=== PATIENT | male | born 1960 | race African-American/Black ===

== ENCOUNTER 2017-11-12 02:35 | Emergency (ER) | payer OTHER ==
[~2017-11-12] VITALS: Ht 149.9 cm; Wt 108.9 kg
[2017-11-12 02:35] VITALS: BP 146/91
[~2017-11-12 02:35] MED LIST: ATORVASTATIN CA80 MG PO; LISI40TA PO; METF500T4 PO; METO50TA6 PO; MULT-208 PO; NAPR-514 PO; OMEG1CAP16 PO; PANT40TA3 PO; SITA50TA PO
[2017-11-12] MEDS ORDERED: AZITHROMYCIN 250 MG TABLET. ONE (03:13)
[2017-11-12] MEDS ORDERED: PRED50TA PO (03:13)
[2017-11-12] MEDS ORDERED: AZIT250T PO (03:13)
[2017-11-12] MEDS ORDERED: predniSONE 20 MG TABLET ONE (03:13)
--- NOTE | 2017-11-12 03:14 | PHYS DOC ---
Past History Past Medical History: Diabetes, High Cholesterol, Hypertension, Other Additional Past Medical Histor: Hx. Rt. rotator cuff injury Past Surgical History: No Surgical History Smoking: Non-smoker Alcohol Use: None Drug Use: None Adult General Chief Complaint Chief Complaint: SORE THROAT HPI HPI Patient is a 13-year-old gentleman with history of hypertension and diabetes who presents here today complaining of cough cold congestion 30 days. Patient reports her last couple days he's noticed increased yellow drainage and yellow productive cough. Patient reports no shortness of breath. Patient has a nausea vomiting diarrhea. Patient has any fevers shakes chills. Patient reports that his symptoms of been worsening so he came to the ER tonight. Review of systems: Constitutional: Denies fever or chills Eyes: Denies change in visual acuity, redness, or eye pain HENT: Positive for nasal congestion or sore throat Respiratory: Positive for sore throat and cough All other systems were reviewed and found to be within normal limits, except as documented in this note. Physical exam: Constitutional: Well developed, well nourished, no acute distress, non-toxic appearance. HENT: Normocephalic, atraumatic, bilateral external ears normal, nose normal. Eyes: PERRLA, EOMI, conjunctiva normal, no discharge. Neck: Normal range of motion, no tenderness, supple, no stridor. Cardiovascular: Heart rate regular rhythm, Lungs & Thorax: Bilateral breath sounds clear to auscultation Abdomen: No abdominal distention. Skin: Warm, dry, no erythema, no rash. Back: Normal spinal curvature Extremities: No tenderness, no cyanosis, no clubbing, ROM intact, no edema. Neurologic: Alert and oriented X 3, normal motor function, normal sensory function, no focal deficits noted. Psychologic: Affect normal, judgement normal, mood normal. Patient's ER physical exam was most remarkable: Lungs clear no wheezing rales or rhonchi. No E to a changes. Assessment and plan: 1. 48-year-old who presents here today complaining of sinus symptoms consistent with chronic sinusitis. Patient will be given Zithromax and prednisone will be instructed to follow-up with his primary care physician in one to 2 days. Patient is otherwise clinically hemodynamically stable. Patient does not present with signs or symptoms consistent with pneumonia. Patient's pulse ox is 98%. Patient will follow-up with primary care physician for reevaluation if not better. Current Medications Current Medications Current Medications Medications (Trade) Dose Ordered Sig/Ryan Start Time Stop Time Status Last Admin Dose Admin Azithromycin (Zithromax) 500 mg 1X ONCE 11/12/17 03:15 11/12/17 03:16 UNV Prednisone (Prednisone) 40 mg 1X ONCE 11/12/17 03:15 11/12/17 03:16 UNV Allergies Allergies Allergies Coded Allergies Type Severity Reaction Last Updated Verified No Known Drug Allergies 09/02/13 No EKG EKG [] Radiology/Procedures Radiology/Procedures [] Course & Med Decision Making Course & Med Decision Making Pertinent Labs and Imaging studies reviewed. (See chart for details) [] Dragon Disclaimer Dragon Disclaimer This electronic medical record was generated, in whole or in part, using a voice recognition dictation system. Departure Departure: Impression: Primary Impression: Chronic sinusitis Disposition: HOME, SELF-CARE Condition: IMPROVED Referrals: CANDACE NUNEZ MD (PCP) Patient Instructions: Sinusitis Scripts Azithromycin (ZITHROMAX) 250 Mg Tablet 250 MG PO DAILY for ANTI-BIOTIC for 4 Days, #4 TAB 0 Refills Prov: CARMINA ANDREWS MD 11/12/17 Prednisone (PREDNISONE) 50 Mg Tablet 1 TAB PO DAILY, #5 TAB Prov: CARMINA ANDREWS MD 11/12/17 CARMINA ANDREWS MD Nov 12, 2017 03:14
[2017-11-12] MEDS ORDERED: AZITHROMYCIN 250 MG TABLET. PO ONE (03:30)
[2017-11-12] MEDS ORDERED: predniSONE 20 MG TABLET PO ONE (03:30)
== END 2017-11-12 03:20 | disposition home or self-care (01) ==
LOC: ER 02:35
DX: J32.9 Chronic sinusitis, unspecified (principal); J02.9 Acute pharyngitis, unspecified; E11.9 Type 2 diabetes mellitus without complications; E78.00 Pure hypercholesterolemia, unspecified; I10 Essential (primary) hypertension
CPT/HCPCS: 99283; J0456; J7512

== ENCOUNTER 2018-04-04 19:49 | Emergency (ER) | payer OTHER ==
[~2018-04-04] VITALS: Ht 175.3 cm; Wt 93.9 kg
[~2018-04-04 19:49] MED LIST changes: +AZIT250T PO; -METF500T4 PO; +METF500T5 PO; +PRED50TA PO
--- NOTE | 2018-04-04 21:23 | PHYS DOC ---
Past History Past Medical History: Diabetes, High Cholesterol, Hypertension Additional Past Medical Histor: Hx. Rt. rotator cuff injury Past Surgical History: Appendectomy Smoking: Non-smoker Alcohol Use: None Drug Use: None Adult General Chief Complaint Chief Complaint: PENIS PROBLEM HPI HPI 37-year-old male presents with penis foreskin swelling. The patient had an episode 1 month ago where he had sexual relations with his and afterwards he had swollen and irritated skin behind the oconnor of the penis. The swelling and discomfort lasted for more than a week but went away on its own. The patient had intercourse with his again 3 days ago and had some swelling that wasn't quite as severe. He also has had pruritus in that same area. He is noticed a sloughing of the skin in the area where was swelling. There is no swelling at this time. He does not have concern for STD. He is a monogamous relationship. His has no symptoms. He denies fever or chills. Review of Systems Review of Systems Constitutional: Denies fever or chills [] Eyes: Denies change in visual acuity, redness, or eye pain [] HENT: Denies nasal congestion or sore throat [] Respiratory: Denies cough or shortness of breath [] Cardiovascular: No additional information not addressed in HPI [] GI: Denies abdominal pain, nausea, vomiting, bloody stools or diarrhea [] : Penis swelling and pruritus[] Musculoskeletal: Denies back pain or joint pain [] Integument: Denies rash or skin lesions [] Neurologic: Denies headache, focal weakness or sensory changes [] Endocrine: Denies polyuria or polydipsia [] All other systems were reviewed and found to be within normal limits, except as documented in this note. Allergies Allergies Allergies Coded Allergies Type Severity Reaction Last Updated Verified No Known Drug Allergies 09/02/13 No Physical Exam Physical Exam Constitutional: Well developed, well nourished, no acute distress, non-toxic appearance. [] HENT: Normocephalic, atraumatic, bilateral external ears normal, oropharynx moist, no oral exudates, nose normal. [] Eyes: PERRLA, EOMI, conjunctiva normal, no discharge. [] Neck: Normal range of motion, no tenderness, supple, no stridor. [] Cardiovascular:Heart rate regular rhythm, no murmur [] Lungs & Thorax: Bilateral breath sounds clear to auscultation [] Abdomen: Bowel sounds normal, soft, no tenderness, no masses, no pulsatile masses. [] Skin: Warm, dry, no erythema, no rash. [] Back: No tenderness, no CVA tenderness. [] Extremities: No tenderness, no cyanosis, no clubbing, ROM intact, no edema. [] Neurologic: Alert and oriented X 3, normal motor function, normal sensory function, no focal deficits noted. [] Psychologic: Affect normal, judgement normal, mood normal. : Normal descended testes bilaterally, circumcised, some mild erythema of the shaft of the penis just proximal to the oconnor. The skin in this area has some white skin that is sloughing off with minimal friction. This appears to be consistent with fungal infection.[] Current Patient Data Vital Signs Vital Signs Date Time Temp Pulse Resp B/P (MAP) Pulse Ox O2 Delivery O2 Flow Rate FiO2 04/04/18 20:05 98.2 80 16 100 Room Air EKG EKG [] Radiology/Procedures Radiology/Procedures [] Course & Med Decision Making Course & Med Decision Making Pertinent Labs and Imaging studies reviewed. (See chart for details) I will trial the patient on a course of antifungal topical medication. I do not see any discharge. I do not see signs of bacterial infection. If this does not improve the patient's condition, I have recommended that he follow up with urology. [] Dragon Disclaimer Dragon Disclaimer This electronic medical record was generated, in whole or in part, using a voice recognition dictation system. Departure Departure: Referrals: CANDACE NUNEZ MD (PCP) TJ LADD DO Apr 04, 2018 21:23
[2018-04-04] MEDS ORDERED: CLOT15CR4 TP (21:28)
[2018-04-04 21:30] VITALS: BP 144/74
== END 2018-04-04 21:33 | disposition home or self-care (01) ==
LOC: ER 19:49
DX: N48.89 Other specified disorders of penis (principal); E11.9 Type 2 diabetes mellitus without complications; E78.00 Pure hypercholesterolemia, unspecified; I10 Essential (primary) hypertension
CPT/HCPCS: 99282

== ENCOUNTER 2018-08-22 17:02 | Emergency (ER) | payer OTHER ==
[~2018-08-22] VITALS: Ht 149.9 cm; Wt 95.1 kg
[~2018-08-22 17:02] MED LIST changes: +CLOT15CR4 TP; +METF500T16 PO; -METF500T5 PO
[2018-08-22 17:12] VITALS: BP 159/94
[2018-08-22] MEDS ORDERED: METH4TAB2 PO (17:58)
[2018-08-22] MEDS ORDERED: AMOX1TAB61 PO (17:58)
[2018-08-22] MEDS ORDERED: FEXO180T81 PO (17:58)
--- NOTE | 2018-08-22 17:58 | PHYS DOC ---
Past History Past Medical History: Diabetes, High Cholesterol, Hypertension Additional Past Medical Histor: Hx. Rt. rotator cuff injury Past Surgical History: Appendectomy Smoking: Non-smoker Alcohol Use: None Drug Use: None Adult General Chief Complaint Chief Complaint: FEVER HPI HPI Patient is a 57-year-old male who presents with complaint of sinus drainage, sore throat and congestion that has been going on for the last couple of months. Patient denies any fever. He states that he was seen here several months back and had been prescribed medication for very similar symptoms and he states that he got better for a while but it has returned. He denies any chest pain or shortness of breath. He does indicate that he has some cough in the morning that is productive of yellow sputum. Review of Systems Review of Systems Constitutional: Denies fever or chills [] HENT: [place] of sinus congestion and sore throat [] Respiratory: Complains of cough without shortness of breath [] Cardiovascular: No additional information not addressed in HPI [] Integument: Denies rash or skin lesions [] Neurologic: Denies headache, focal weakness or sensory changes [] Allergies Allergies Allergies Coded Allergies Type Severity Reaction Last Updated Verified No Known Drug Allergies 09/02/13 No Physical Exam Physical Exam Constitutional: Well developed, well nourished, no acute distress, non-toxic appearance. [] HENT: Normocephalic, atraumatic, bilateral external ears normal, pharyngeal erythema without accidents. Posterior pharyngeal cobblestoning, nose normal. Tenderness on percussion of maxillary sinuses. [] Eyes: PERRLA, EOMI, conjunctiva normal, no discharge. [] Neck: Normal range of motion, no tenderness, supple, with cervical lymphadenopathy. [] Cardiovascular: Regular rate and rhythm [] Lungs & Thorax: Bilateral breath sounds clear to auscultation [] Skin: Warm, dry, no erythema, no rash. [] Extremities: No tenderness, no cyanosis, no clubbing, ROM intact, no edema. [] Current Patient Data Vital Signs Vital Signs Date Time Temp Pulse Resp B/P (MAP) Pulse Ox O2 Delivery O2 Flow Rate FiO2 08/22/18 17:12 97.4 77 20 98 Room Air EKG EKG [] Radiology/Procedures Radiology/Procedures [] Course & Med Decision Making Course & Med Decision Making Pertinent Labs and Imaging studies reviewed. (See chart for details) [] Dragon Disclaimer Dragon Disclaimer This electronic medical record was generated, in whole or in part, using a voice recognition dictation system. Departure Departure: Impression: Primary Impression: Sinusitis Disposition: 01 HOME, SELF-CARE Condition: STABLE Referrals: CANDACE NUNEZ MD (PCP) Patient Instructions: Sinusitis Scripts Fexofenadine Hcl (JACE ALLERGY) 180 Mg Tablet 1 TAB PO DAILY for allergies, #30 TAB Prov: SUE CROWELL Jr. DO 08/22/18 Methylprednisolone (MEDROL) 4 Mg Tab.ds.pk 1 PKG PO UD for inflammation, #1 PKG Prov: SUE CROWELL Jr. DO 08/22/18 Amoxicillin/Potassium Clav (AUGMENTIN 875-125 TABLET) 1 Each Tablet 1 TAB PO BID for infection, #28 TAB Prov: SUE CROWELL Jr. DO 08/22/18 Problem Qualifiers Primary Impression: Sinusitis Sinusitis location: maxillary Chronicity: chronic Qualified Codes: J32.0 - Chronic maxillary sinusitis SUE CROWELL Jr. DO Aug 22, 2018 17:58
== END 2018-08-22 17:55 | disposition home or self-care (01) ==
LOC: ER 17:02
DX: J32.0 Chronic maxillary sinusitis (principal); E11.9 Type 2 diabetes mellitus without complications; E78.00 Pure hypercholesterolemia, unspecified; I10 Essential (primary) hypertension
CPT/HCPCS: 99283

== ENCOUNTER 2019-03-12 19:21 | Emergency (ER) | payer OTHER ==
[~2019-03-12] VITALS: Ht 185.4 cm; Wt 95.3 kg
[~2019-03-12 19:21] MED LIST changes: +AMOX1TAB61 PO; +FEXO180T81 PO; +METH4TAB2 PO
[2019-03-12 19:33] VITALS: BP 150/95
[2019-03-12] MEDS ORDERED: FEXO180T81 PO (19:44)
[2019-03-12] MEDS ORDERED: AMOX1TAB61 PO (19:44)
[2019-03-12] MEDS ORDERED: METH4TAB2 PO (19:44)
--- NOTE | 2019-03-12 19:44 | PHYS DOC ---
Past History Past Medical History: Diabetes, High Cholesterol, Hypertension Additional Past Medical Histor: Hx. Rt. rotator cuff injury Past Surgical History: Appendectomy Smoking: Non-smoker Alcohol Use: None Drug Use: None Adult General Chief Complaint Chief Complaint: OTHER COMPLAINTS HPI HPI Patient is a 58-year-old male presents with 2-3 days of sinus pressure, runny nose, postnasal drainage and cough. He has long-standing history of this. Was most recently on antibiotics for this in July 2018. Reports that previous medication treatment improved his symptoms within 2-3 days. Reports his symptoms are moderate in intensity. Denies any fever. Denies any significant pain. Denies any purulent drainage.[] Review of Systems Review of Systems Constitutional: Denies fever or chills [] Eyes: Denies change in visual acuity, redness, or eye pain [] HENT: See history of present illness[] Respiratory: Denies shortness of breath, see history of present illness [] Cardiovascular: No chest pain or palpitations[] GI: Denies abdominal pain, nausea, vomiting, bloody stools or diarrhea [] : Denies dysuria or hematuria [] Musculoskeletal: Denies back pain or joint pain [] Integument: Denies rash or skin lesions [] Neurologic: Denies headache, focal weakness or sensory changes [] Endocrine: Denies polyuria or polydipsia [] All other systems were reviewed and found to be within normal limits, except as documented in this note. Allergies Allergies Allergies Coded Allergies Type Severity Reaction Last Updated Verified No Known Drug Allergies 09/02/13 No Physical Exam Physical Exam Constitutional: Well developed, well nourished, no acute distress, non-toxic appearance. [] HENT: Normocephalic, atraumatic, bilateral external ears normal, oropharynx moist, no oral exudates, nose with mild clear rhinorrhea, posterior pharyngeal streaking is present[] Eyes: PERRLA, EOMI, conjunctiva normal, no discharge. [] Neck: Normal range of motion, no tenderness, supple, no stridor. [] Cardiovascular:Heart rate regular rhythm, no murmur [] Lungs & Thorax: Bilateral breath sounds clear to auscultation [] Abdomen: Not examined. [] Skin: Warm, dry, no erythema, no rash. [] Back: No tenderness, no CVA tenderness. [] Extremities: No tenderness, no cyanosis, no clubbing, ROM intact, no edema. [] Neurologic: Alert and oriented X 3, normal motor function, normal sensory function, no focal deficits noted. [] Psychologic: Affect normal, judgement normal, mood normal. [] Current Patient Data Vital Signs Vital Signs Date Time Temp Pulse Resp B/P (MAP) Pulse Ox O2 Delivery O2 Flow Rate FiO2 03/12/19 19:33 97.5 77 18 99 Room Air EKG EKG [] Radiology/Procedures Radiology/Procedures [] Course & Med Decision Making Course & Med Decision Making Pertinent Labs and Imaging studies reviewed. (See chart for details) Medical decision making: Given the patient has had previous episodes of sinusitis that improved with medicine. Will prescribe similar medicine regimen for him. There does not appear to be any evidence of pneumonia. No meningitis or encephalitis.[] Dragon Disclaimer Dragon Disclaimer This electronic medical record was generated, in whole or in part, using a voice recognition dictation system. Departure Departure: Impression: Primary Impression: Sinusitis Disposition: HOME, SELF-CARE Condition: IMPROVED Referrals: MONICA LOMELI APRN (PCP) Follow-up in 2 days Patient Instructions: Sinusitis Additional Instructions: Follow-up with your regular doctor in 2 days. Drink plenty of fluids. Return to the ER if fever of more than 101, difficulty breathing, or any other concerns. Scripts Amoxicillin/Potassium Clav (AUGMENTIN 875-125 TABLET) 1 Each Tablet 1 TAB PO BID for sinuses, #20 TAB Prov: KRISITAN MCKEON DO 03/12/19 Methylprednisolone (MEDROL) 4 Mg Tab.ds.pk 1 PKG PO UD for sinuses, #1 PKG Prov: KRISTIAN MCKEON DO 03/12/19 Fexofenadine Hcl (JACE ALLERGY) 180 Mg Tablet 1 TAB PO DAILY for sinuses, #30 TAB 0 Refills Prov: KRISTIAN MCKEON DO 03/12/19 Problem Qualifiers Primary Impression: Sinusitis Sinusitis location: unspecified location Chronicity: subacute Qualified Codes: J01.90 - Acute sinusitis, unspecified KRISTIAN MCKEON DO Mar 12, 2019 19:44
== END 2019-03-12 19:45 | disposition home or self-care (01) ==
LOC: ER 19:21
DX: J01.90 Acute sinusitis, unspecified (principal); E11.9 Type 2 diabetes mellitus without complications; E78.00 Pure hypercholesterolemia, unspecified; I10 Essential (primary) hypertension
CPT/HCPCS: 99283

== ENCOUNTER 2019-08-21 21:11 | Emergency (ER) | payer OTHER ==
[~2019-08-21] VITALS: Ht 185.4 cm; Wt 97.5 kg
--- NOTE | 2019-08-21 22:11 | PHYS DOC ---
Past History Past Medical History: Diabetes, High Cholesterol, Hypertension Additional Past Medical Histor: Hx. Rt. rotator cuff injury Past Surgical History: Appendectomy Smoking: Non-smoker Alcohol Use: None Drug Use: None Adult General Chief Complaint Chief Complaint: VISION PROBLEM [facility] HPI 58-year-old male presents with left eye visual disturbance. The last couple weeks, the patient has had intermittent black spots "floaters" only in the left eye. He presents today because around 1:30 PM he began to have fall deviation throughout his visual schmidt again just in the left eye. He has no pain. He thought it might were also he waited several hours before he came to the emergency room. He denies any other changes or concerns. He can still see light and objects with that I it just looks a bit blurry. Patient has oral medication controlled diabetes and hyperlipidemia. He has well-controlled blood pressure. He has no other chronic diseases. He has had no previous significant eye problems. Review of Systems Review of Systems Constitutional: Denies fever or chills [] Eyes: Denies change in visual acuity, redness, or eye pain [] HENT: Denies nasal congestion or sore throat [] Respiratory: Denies cough or shortness of breath [] Cardiovascular: No additional information not addressed in HPI [] GI: Denies abdominal pain, nausea, vomiting, bloody stools or diarrhea [] : Denies dysuria or hematuria [] Musculoskeletal: Denies back pain or joint pain [] Integument: Denies rash or skin lesions [] Neurologic: Denies headache, focal weakness or sensory changes [] Endocrine: Denies polyuria or polydipsia [] All other systems were reviewed and found to be within normal limits, except as documented in this note. Allergies Allergies Allergies Coded Allergies Type Severity Reaction Last Updated Verified No Known Drug Allergies 09/02/13 No Physical Exam Physical Exam Constitutional: Well developed, well nourished, no acute distress, non-toxic appearance. [] HENT: Normocephalic, atraumatic, bilateral external ears normal, oropharynx moist, no oral exudates, nose normal. [] Eyes: PERRLA, EOMI, conjunctiva normal, no discharge. Eye exam severely limited to inability to dilate the patient's eye.[] Neck: Normal range of motion, no tenderness, supple, no stridor. [] Cardiovascular:Heart rate regular rhythm, no murmur [] Lungs & Thorax: Bilateral breath sounds clear to auscultation [] Abdomen: Bowel sounds normal, soft, no tenderness, no masses, no pulsatile masses. [] Skin: Warm, dry, no erythema, no rash. [] Back: No tenderness, no CVA tenderness. [] Extremities: No tenderness, no cyanosis, no clubbing, ROM intact, no edema. [] Neurologic: Alert and oriented X 3, normal motor function, normal sensory function, no focal deficits noted. [] Psychologic: Affect normal, judgement normal, mood normal. [] Current Patient Data Vital Signs Vital Signs Date Time Temp Pulse Resp B/P (MAP) Pulse Ox O2 Delivery O2 Flow Rate FiO2 08/21/19 21:31 98.3 96 16 98 Room Air EKG EKG [] Radiology/Procedures Radiology/Procedures [] Course & Med Decision Making Course & Med Decision Making Pertinent Labs and Imaging studies reviewed. (See chart for details) Patient does not appear to have specific visual field deficits. He states they mostly global blurriness, but is able to see all visual schmidt through this. He has not seeing large number of floaters. He occasionally sees one or 2. He has been followed by an eye doctor regularly. He will make an appointment tomorrow for evaluation tomorrow. I believe this is a reasonable treatment plan as it is 10:00 PM the patient is stable for discharge at this time. [] Dragon Disclaimer Dragon Disclaimer This electronic medical record was generated, in whole or in part, using a voice recognition dictation system. Departure Departure: Impression: Primary Impression: Floaters in visual field Disposition: 01 HOME, SELF-CARE Condition: STABLE Referrals: MONICA LOMELI APRN (PCP) Patient Instructions: Eye - Floaters, Retinal Detachment Problem Qualifiers Primary Impression: Floaters in visual field Laterality: left Qualified Codes: H43.392 - Other vitreous opacities, left eye TJ LADD DO Aug 21, 2019 22:11
[2019-08-21 22:15] VITALS: BP 152/69
== END 2019-08-21 22:15 | disposition home or self-care (01) ==
LOC: ER 21:11
DX: H43.392 Other vitreous opacities, left eye (principal); E11.9 Type 2 diabetes mellitus without complications; E78.00 Pure hypercholesterolemia, unspecified; I10 Essential (primary) hypertension
CPT/HCPCS: 99284

== ENCOUNTER 2020-04-02 19:43 | Emergency (ER) | payer OTHER ==
[~2020-04-02] VITALS: Ht 185.4 cm; Wt 95.1 kg
[~2020-04-02 19:43] MED LIST changes: +CLOT15CR23 TP; -CLOT15CR4 TP
--- NOTE | 2020-04-02 19:47 | PHYS DOC ---
Past History Past Medical History: Diabetes, High Cholesterol, Hypertension Additional Past Medical Histor: Hx. Rt. rotator cuff injury Past Surgical History: Appendectomy Smoking: Non-smoker Alcohol Use: None Drug Use: None General Adult HPI: HPI: "I know .. I got COVID.. I was tested + on Thursday last week... [facility] My has it.... My brother in law has it... I ve been without symptoms ...until today..I had a little cough.. and a little more sputum..." but.. other than that I feel fine..." Patient is a 59 year old MALE [employer] [place] employee who presents with above hx and complaints of COVID + with Dyspnea, cough and some sputum production. Pt. previously seen in Emergency Room 12/08 and 05/17 for chest pain chest pain symptoms were attributed to GERD.. Pt. states he was COVID + on testing [facility] Thursday. No Prior hx. CADz. and but has risk factors, elevated Lipids, HTN, DM. Pt. prior admit evaluations for chest pain on 12/08 and 05/17, chest pain felt to be due to GERD. No current chest pain or dysrhythmias. Pt. concerned because of mild cough and some sputum. Sputum clear in color. Patient denies any changes of his discharge meds from 05/17/2015. Patient does have positive COVID contacts with and [id number].. No recent travel overseas. 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 Is retired [employer]. Patient normally follows at [facility] for care. Review of Systems: Review of Systems: Constitutional: Denies fever or chills Eyes: Denies change in visual acuity HENT: Denies nasal congestion or sore throat Respiratory: Complaints of cough and wheezing. Cardiovascular: Denies chest pain or edema GI: Denies abdominal pain, nausea, vomiting, bloody stools or diarrhea : Denies dysuria Musculoskeletal: Denies back pain or joint pain Integument: Denies rash Neurologic: Denies headache, focal weakness or sensory changes Endocrine: Hx. of DM and Elevated Lipids Lymphatic: Denies swollen glands Psychiatric: Denies depression or anxiety Heart Score: HEART Score for Chest Pain: HEART Score for Chest Pain Response (Comments) Value History Slighlty/Non-Suspicious 0 ECG Nonspecific Repolarizatio 1 Age >45 - < 65 1 Risk Factors 1 or 2 Risk Factors 1 Troponin < Normal Limit 0 Total 3 Risk Factors: Risk Factors: DM, Current or recent (<one month) smoker, HTN, HLP, family history of CAD, obesity. Risk Scores: Score 0 - 3: 2.5% MACE over next 6 weeks - Discharge Home Score 4 - 6: 20.3% MACE over next 6 weeks - Admit for Clinical Observation Score 7 - 10: 72.7% MACE over next 6 weeks - Early Invasive Strategies Family History: Family History: Diabetes and hypertension Current Medications: Current Meds: See nursing for home meds Allergies: Allergies: Allergies Coded Allergies Type Severity Reaction Last Updated Verified No Known Drug Allergies 09/02/13 No Physical Exam: PE: Constitutional: no acute distress, non-toxic appearance. [] HENT: Normocephalic, atraumatic, bilateral external ears normal, oropharynx moist, mild postnasal drainage, no oral exudates, nose swollen turbinates and clear rhinorrhea Eyes: PERRLA, EOMI, conjunctiva normal, no discharge. [] Neck: Normal range of motion, no tenderness, supple, no stridor. [] Cardiovascular:Heart rate regular rhythm, no murmur [] Lungs & Thorax: Bilateral breath sounds equal apex with few scattered wheezes on auscultation [] Abdomen: Bowel sounds normal, soft, no tenderness, no masses, no pulsatile masses. Old surgery scars. Skin: Warm, dry, no erythema, no rash. [] Back: No tenderness, no CVA tenderness. [] Extremities: No tenderness, no cyanosis, no clubbing, ROM intact, no edema. Surgery scar right shoulder. No cording appreciated Neurologic: Alert and oriented X 3, normal motor function, normal sensory function, no focal deficits noted. [] Patient is ambulatory without problems. Psychologic: Affect anxious, judgement normal, mood normal. [] EKG: EKG: My interpretation EKG shows a sinus tachycardia 106 bpm. Does have an occasional PVC. Does have left axis deviation. And a fascicular block. Overall morphology is similar to prior EKG on file. [] Radiology/Procedures: Radiology/Procedures: [][address] [address] IMAGING REPORT Signed PATIENT: GARRY BROTHERS ACCOUNT: [id number] : 1960 LOCATION: ER AGE: 59 SEX: M EXAM STATUS: REG ER ORD. PHYSICIAN: JOSUÉ BURRIS MD REASON: Dyspnea, cough, diabetic hx. COVID+ThursdayMarch 26. Omni 350 100cc PROCEDURE: CT ANGIOGRAPHY CHEST Exam: CT of chest with contrast INDICATION: Dyspnea, cough, diabetic TECHNIQUE: Sequential axial images through the chest obtained following the administration of 90 mL of Isovue-370 IV contrast. Sagittal and coronal reformatted images were reconstructed from the axial data and reviewed. 3-D reformatted images were reconstructed from the axial data and reviewed. Comparisons: Chest x-ray same day FINDINGS: Visualized portions of the thyroid are unremarkable. No enlarged mediastinal lymph nodes are identified. Heart size is normal. No pericardial effusion. Mild coronary artery calcium lesions. Thoracic aorta is a normal course and caliber. Pulmonary artery is not enlarged. No pulmonary embolus identified within the main, lobar or segmental pulmonary arteries. Airways are patent. There is patchy areas of consolidation in the lungs bilaterally. No pneumothorax. No pleural effusion or thickening. Visualized upper abdomen is unremarkable. No suspicious osseous lesions or acute fractures. IMPRESSION: 1. No pulmonary embolus identified within the main, lobar or segmental pulmonary arteries. 2. Patchy areas of consolidation at the lungs bilaterally favored to be infectious or inflammatory in etiology. Correlate for atypical/viral causes. Exposure: One or more of the following in the visualized dose reduction techniques were utilized for this examination: 1. Automated exposure control 2. Adjustment of the MA and/or KV according to patient size 3. Use of iterative of reconstructive technique Electronically signed by: Meg Hameed MD (04/02/2020 10:04 PM) [id number] DICTATED AND SIGNED BY: MEG HAMEED MD DATE: 04/02/202203 CC: JOSUÉ BURRIS MD; MONICA LOMELI APRN ~ Course & Med Decision Making: Course & Med Decision Making Pertinent Labs and Imaging studies reviewed. (See chart for details) Patient to use MDI 2 puffs 4 times a day. Patient take a Zithromax 250 a day. Patient take Tylenol and ibuprofen as needed for discomfort or fever. Patient to push fluids. Patient to manage his diabetes closely. Patient to return if he has desaturations or increased difficulty in breathing or chest pain. Patient follow-up at [facility]. Patient issued a copy of his x-rays and CT of chest. Patient to wear a mask anytime he is outside his home covering his nose and mouth. Patient to continue self-isolation since he is still having symptoms even if minor. Must follow-up. Take previous meds as directed. Hold Metaformin x 24 hrs. Push fluids. Options of admit for observation declined by pt. at this time. Impression: 1. COVID-19 positive test (U07.1, COVID-19) with Acute Pneumonia (J12.89, Other viral pneumonia) (If respiratory failure or sepsis present, add as separate assessment) 2. Diabetes glucose 371 ( Ate just before arrival.) 3. Hypo-magnesium 1.6 4. Elevated d-dimer 0.71 5. Elevated CRP 7.0 6. Hx. HTN 7. Hx. Elevated Lipids []COVID Precautions taken in care of pt. Jero Disclaimer: Jero Disclaimer: This electronic medical record was generated, in whole or in part, using a voice recognition dictation system. Departure Departure: Disposition: 01 HOME/RESIDENCE PRIOR TO ADM Condition: STABLE Referrals: MONICA LOMELI APRN (PCP) Scripts Azithromycin (ZITHROMAX) 250 Mg Tablet 250 MG PO DAILY for ANTI-BIOTIC for 5 Days, #5 TAB 0 Refills Prov: JOSUÉ BURRIS MD 04/02/20 Justification of Admission: Justification of Admission: Justification of Admission Dx: N/A Dragon Disclaimer This chart was dictated in whole or in part using Voice Recognition software in a busy, high-work load, and often noisy Emergency Department environment. It may contain unintended and wholly unrecognized errors or omissions. Dragon Disclaimer This chart was dictated in whole or in part using Voice Recognition software in a busy, high-work load, and often noisy Emergency Department environment. It may contain unintended and wholly unrecognized errors or omissions. JOSUÉ BURRIS MD Apr 02, 2020 19:47
[2020-04-02] MEDS ORDERED: IV RINGERS SOLUTION,LACTATED 1,000 ML IV SCH (19:49)
[2020-04-02] MEDS ORDERED: ASPIRIN CHEWABLE 81 MG TABLET. PO ONE (20:00)
[2020-04-02] MEDS ORDERED: ALBUTEROL SULFATE 8GM INHALER. INH ONE (20:00)
--- NOTE | 2020-04-02 20:39 | EKG ---
[address] [address] Test Date: 2020-04-02 Test Time: 20:20:42 Pat Name: GARRY BROTHERS Department: Room: Gender: M [employer] Analyst: CHASITY : 1960 Requested By: JOSUÉ BURRIS Order Number: [id number] Reading MD: Measurements Intervals Marshall Rate: 106 P: -42 DE: 112 QRS: -34 QRSD: 88 T: 23 QT: 344 QTc: 459 Interpretive Statements SINUS TACHYCARDIA VENTRICULAR PREMATURE COMPLEX(ES) ABNORMAL LEFT AXIS DEVIATION LEFT ANTERIOR FASCICULAR BLOCK ABNORMAL ECG RI6.02 No previous ECG available for comparison
--- NOTE | 2020-04-02 20:43 | RAD ---
AP portable chest radiograph 04/02/2020 Clinical History: Shortness of breath. An AP erect portable digital radiograph of the chest was obtained. Comparison study is dated 11/05/2015. The cardiac silhouette is normal in size. The thoracic aorta is mildly tortuous. Linear bands of subsegmental atelectasis are seen involving the left lower lobe. No area of consolidation is seen. No pneumothorax or pleural effusion is noted. Degenerative changes are seen involving both shoulders along with the thoracic spine. IMPRESSION: Linear bands of subsegmental atelectasis are seen involving the left lower lobe. Electronically signed by: Orion Stack MD (04/02/2020 8:40 PM) [id number]
[2020-04-02 20:48] LABS: BASO % 1 % (0-3); EOS % 0 % (0-3); HEMATOCRIT 46.1 % (39.0-53.0); HEMOGLOBIN 15.6 g/dL (13.0-17.5); LYMPH % 28 % (24-48); MEAN CORPUSCULAR HEMOGLOBIN 28 pg (25-35); MEAN CORPUSCULAR HGB CONC 34 g/dL (31-37); MEAN CORPUSCULAR VOLUME 83 fL (79-100); MONO # 0.5 x10^3/uL (0.0-1.1); MONO % 14 % (0-9); NEUT # 2.1 x10^3uL (1.8-7.7); NEUT % 57 % (31-73); PLATELET COUNT 175 x10^3/uL (140-400); RED BLOOD COUNT 5.53 x10^6/uL (4.30-5.70); RED CELL DISTRIBUTION WIDTH 13.4 % (11.5-14.5); WHITE BLOOD COUNT 3.7 x10^3/uL (4.0-11.0)
[2020-04-02 20:52] LABS: BARBITURATES NEG (NEG); BENZODIAZEPINES NEG (NEG); CANNABINOIDS NEG (NEG); COCAINE NEG (NEG); METHADONE NEG (NEG); OPIATES NEG (NEG); PHENCYCLIDINE NEG (NEG)
[2020-04-02 20:54] LABS: BACTERIA,URINE 0 /HPF (0-FEW); BILIRUBIN,URINE NEG (NEG); CLARITY,URINE CLEAR; COLOR,URINE YELLOW; GLUCOSE,URINE >=1000 mg/dL (NEG); NITRITE,URINE NEG (NEG); RBC,URINE 0 /HPF (0-2); SQUAMOUS EPITHELIAL CELL,UR OCC /LPF; UROBILINOGEN,URINE 0.2 mg/dL (0.2 mg/dL); WBC,URINE OCC /HPF (0-4)
[2020-04-02 20:55] LABS: HYALINE CASTS, URINE OCC /HPF
[2020-04-02 20:56] LABS: AMPHETAMINE/METHAMPHETAMINE NEG (NEG)
[2020-04-02] MEDS ORDERED: IV RINGERS SOLUTION,LACTATED 1,000 ML IV ONE (21:00)
[2020-04-02 21:03] LABS: CALCIUM 8.1 mg/dL (8.5-10.1); CREATININE 1.2 mg/dL (0.7-1.3); GFR 74.5; POTASSIUM 3.5 mmol/L (3.5-5.1)
[2020-04-02 21:08] LABS: ALBUMIN 3.6 g/dL (3.4-5.0); DIRECT BILIRUBIN 0.2 mg/dL (0.0-0.2); MAGNESIUM 1.6 mg/dL (1.8-2.4); TOTAL PROTEIN 7.5 g/dL (6.4-8.2)
[2020-04-02] MEDS ORDERED: MAGNESIUM SULFATE 2GM 50 ML IV ONE (21:30)
[2020-04-02] MEDS ORDERED: AZITHROMYCIN 250 MG TABLET. PO ONE (21:30)
[2020-04-02] MEDS ORDERED: IOHEXOL 350 MG/ML 100 ML VIAL. IV ONE (21:30)
[2020-04-02] MEDS ORDERED: ENOXAPARIN ** NOTE DOSE ** SYRINGE SQ ONE (21:30)
--- NOTE | 2020-04-02 22:07 | RAD ---
Exam: CT of chest with contrast INDICATION: Dyspnea, cough, diabetic TECHNIQUE: Sequential axial images through the chest obtained following the administration of 90 mL of Isovue-370 IV contrast. Sagittal and coronal reformatted images were reconstructed from the axial data and reviewed. 3-D reformatted images were reconstructed from the axial data and reviewed. Comparisons: Chest x-ray same day FINDINGS: Visualized portions of the thyroid are unremarkable. No enlarged mediastinal lymph nodes are identified. Heart size is normal. No pericardial effusion. Mild coronary artery calcium lesions. Thoracic aorta is a normal course and caliber. Pulmonary artery is not enlarged. No pulmonary embolus identified within the main, lobar or segmental pulmonary arteries. Airways are patent. There is patchy areas of consolidation in the lungs bilaterally. No pneumothorax. No pleural effusion or thickening. Visualized upper abdomen is unremarkable. No suspicious osseous lesions or acute fractures. IMPRESSION: 1. No pulmonary embolus identified within the main, lobar or segmental pulmonary arteries. 2. Patchy areas of consolidation at the lungs bilaterally favored to be infectious or inflammatory in etiology. Correlate for atypical/viral causes. Exposure: One or more of the following in the visualized dose reduction techniques were utilized for this examination: 1. Automated exposure control 2. Adjustment of the MA and/or KV according to patient size 3. Use of iterative of reconstructive technique Electronically signed by: Meg Humphrey MD (04/02/2020 10:04 PM) [id number]
[2020-04-02] MEDS ORDERED: AZIT250T PO (22:23)
[2020-04-03 00:15] VITALS: BP 145/86
== END 2020-04-03 00:40 | disposition home or self-care (01) ==
LOC: ER 19:43
DX: U07.1 COVID-19 (principal); J12.89 Other viral pneumonia; E11.9 Type 2 diabetes mellitus without complications; E83.42 Hypomagnesemia; R79.1 Abnormal coagulation profile; R79.82 Elevated C-reactive protein (CRP); I10 Essential (primary) hypertension; E78.00 Pure hypercholesterolemia, unspecified
CPT/HCPCS: 36415; 71045; 71275; 80048; 80076; 80307; 81001; 82550; 83605; 83690; 83735; 83880; 84443; 84484; 85025; 85379; 85610; 85730; 86140; 87040; 93005; 94640; 96361; 96365; 96366; 96372; 99285; J0456; J1650; J3475; J7120; J7613; Q9967; 94664

== ENCOUNTER 2020-09-02 21:39 | Emergency (ER) | payer OTHER ==
[~2020-09-02] VITALS: Ht 185.4 cm; Wt 96.6 kg
[~2020-09-02 21:39] MED LIST changes: -LISI40TA PO; +LISI40TA6 PO
--- NOTE | 2020-09-02 21:54 | PHYS DOC ---
Past History Past Medical History: Diabetes, High Cholesterol, Hypertension Additional Past Medical Histor: Hx. Rt. rotator cuff injury Past Surgical History: Appendectomy Smoking: Non-smoker Alcohol Use: None Drug Use: None Adult General HPI HPI Patient is a 59-year-old male presenting for right ear pain. Reports this has been ongoing for approximately 3 weeks. Nothing known makes better or worse. Pain is dull and constant located inside ear. Timing of symptoms has been constant since onset and worsening. Denies any fever, ear drainage, hearing or vision loss, no nuchal rigidity, chest pain, shortness of breath, abdominal pain, urinary symptoms, crepitus. Patient has history of diabetes, is not insulin-dependent, no other known immunodeficiencies noted per patient, he is not on any biologic agents Review of Systems Review of Systems Fourteen body systems of review of systems have been reviewed. See HPI for pe rtinent positives and negative responses, other lemos all other systems are negative, non-pertinent or non-contributory Current Medications Current Medications Current Medications Medications (Trade) Dose Ordered Sig/Ryan Start Time Stop Time Status Last Admin Dose Admin Amoxicillin/ Clavulanate Potassium (Augmentin 875/ 125mg) 1 tab 1X ONCE 09/02/20 22:15 09/02/20 22:16 DC Allergies Allergies Allergies Coded Allergies Type Severity Reaction Last Updated Verified No Known Drug Allergies 09/02/13 No Physical Exam Physical Exam General: Appears well, non toxic, and comfortable Skin: Warm, dry. Normal for ethnicity. HEENT: Atraumatic. PERRLA. Nasal turbinates unremarkable b/l. Left middle ear unremarkable with mild ear cerumen, right inner ear consistent with acute infection, bulging tympanic membrane with loss of cone of light, injection and erythema with pain during otoscope examination without obvious discharge or exudate or perforation, moist mucous membranes. Uvula midline. Maintaining secretions. No phonation changes. Neck: Trachea midline. Normal ROM. No stridor. Respiratory: Normal WOB. CTAB w/o w/r/r. No tachypnea. Cardiovascular: Regular rate and rhythm. Normal peripheral perfusion. Abdomen: Soft. Non tender. No distension. Back: Normal ROM. Musculoskeletal: No swelling or deformity. Neuro: Alert and oriented x 4. MAEE. Lymph: No cervical LAD. Psych: Normal affect and mood. Current Patient Data Vital Signs Vital Signs Date Time Temp Pulse Resp B/P (MAP) Pulse Ox O2 Delivery O2 Flow Rate FiO2 09/02/20 21:40 98.9 98 18 172/86 (114) 98 Room Air EKG EKG [] Radiology/Procedures Radiology/Procedures [] Heart Score HEART Score for Chest Pain: HEART Score for Chest Pain Response (Comments) Value History Slighlty/Non-Suspicious 0 Age >45 - < 65 1 Risk Factors 1 or 2 Risk Factors 1 Total 2 Risk Factors: Risk Factors: DM, Current or recent (<one month) smoker, HTN, HLP, family history of CAD, obesity. Risk Scores: Risk Factors: DM, Current or recent (<one month) smoker, HTN, HLP, family history of CAD, obesity. Course & Med Decision Making Course & Med Decision Making Discussed with the patient all findings and diagnostic testing. I discussed most likely diagnosis of right otitis media. I discussed that typically in healthy individuals there is no indication for antibiotics. I also disclosed that this diagnosis is uncommon in adults his age. With all this said, joint decision was made to treat patient with antibiotics especially given his history of diabetes. Patient took dose of antibiotic prior to departure and tolerated this well. I stressed need for close outpatient follow-up to review today's ER visit given unusual diagnosis and need to ensure no other immunodeficiencies. Strict return precautions were also discussed at length with good understanding by patient. Patient voiced understanding and agreement with the plan. Patient knows to come back for repeat evaluation if concerning signs or symptoms present prior to outpatient follow-up. Hemodynamically stable, ambulatory and well- appearing at time of disposition. Dragon Disclaimer Dragon Disclaimer This electronic medical record was generated, in whole or in part, using a voice recognition dictation system. Departure Departure: Impression: Primary Impression: Right otitis media Disposition: 01 DC HOME SELF CARE/HOMELESS Condition: STABLE Referrals: MONICA LOMELI APRN (PCP) Patient Instructions: Otitis Media, Adult Additional Instructions: You were evaluated in the Emergency Department today for ear pain. Your physical exam suggests that you have an ear infection. Please take the antibiotics in full as directed. It is unusual for individuals your age to have ear infections and so, it is important to follow-up with your primary care physician to ensure symptomatic resolution and other diagnostic work-up as indicated It was a pleasure to take care of you and I wish you the best going forward Scripts Amoxicillin/Potassium Clav (AUGMENTIN 875-125 TABLET) 1 Each Tablet 1 TAB PO BID for EAR INFECTION for 5 Days, #10 TAB 0 Refills Prov: FATMAAT TOLEDO DO 09/02/20 FATMATA TOLEDO DO Sep 02, 2020 21:54
[2020-09-02] MEDS ORDERED: AMOX1TAB61 PO (22:03)
[2020-09-02 22:15] VITALS: BP 164/93
[2020-09-02] MEDS ORDERED: AMOXICILLIN/K CLAV 875/125MG TABLET. PO ONE (22:15)
== END 2020-09-02 22:12 | disposition home or self-care (01) ==
LOC: ER 21:39
DX: H66.91 Otitis media, unspecified, right ear (principal); E11.9 Type 2 diabetes mellitus without complications; E78.00 Pure hypercholesterolemia, unspecified; I10 Essential (primary) hypertension
CPT/HCPCS: 99283

== ENCOUNTER 2020-09-04 09:04 | Observation (INO) | payer OTHER ==
[~2020-09-04] VITALS: Ht 175.3 cm; Wt 92.2 kg
[~2020-09-04 09:04] MED LIST changes: +LISI40TA PO; -LISI40TA6 PO
[2020-09-04] MEDS ORDERED: DEXAMETHASONE SOD PHOS 10 MG/ML VIAL. IV ONE (09:45)
[2020-09-04] MEDS ORDERED: IV NORMAL SALINE 1,000ML 1,000 ML IV ONE ×3 (09:45→11:45)
--- NOTE | 2020-09-04 10:23 | PHYS DOC ---
Past History Past Medical History: Diabetes, High Cholesterol, Hypertension Additional Past Medical Histor: Hx. Rt. rotator cuff injury Past Surgical History: Appendectomy Smoking: Non-smoker Alcohol Use: None Drug Use: None General Adult EDM: Chief Complaint: SORE THROAT HPI: HPI: Patient is a 59-year-old male coming in for worsening throat pain. Was seen 3 days ago and had throat pain at that time was diagnosed with a right ear infection. Patient states that the pain is mostly on the right side of his throat and today looked into the back of his throat and saw "pus". Patient is he is having difficulty swallowing or managing secretions. Does not have a cough or chest pain, shortness of breath. Has had subjective fevers where he feels "hot" but has not checked his temperature at home. States he still has a little bit of ear pain but mostly feels like the pain is in the side of his neck. Denies any vomiting or diarrhea. Denies any chronic history of tonsillitis or throat problems. Has a history of hypertension and diabetes. Review of Systems: Review of Systems: All other systems within normal limits except for as noted in the HPI Current Medications: Current Meds: Current Medications Medications (Trade) Dose Ordered Sig/Ryan Start Time Stop Time Status Last Admin Dose Admin Dexamethasone Sodium Phosphate (Decadron) 10 mg 1X ONCE 09/04/20 09:45 09/04/20 09:55 DC Sodium Chloride 1,000 ml @ 1,000 mls/hr 1X ONCE 09/04/20 09:45 09/04/20 10:44 Allergies: Allergies: Allergies Coded Allergies Type Severity Reaction Last Updated Verified No Known Drug Allergies 09/02/13 No Physical Exam: PE: Constitutional: Well developed, well nourished, no acute distress, non-toxic appearance. [] HENT: Normocephalic, atraumatic, bilateral external ears normal, nose normal. [] Bilateral tonsillar exudates, erythema, mild swelling of right tonsil without uvular shift Eyes: PERRLA, conjunctiva normal, no discharge. [] Neck: No rigidity, supple, no stridor. [] Right cervical lymphadenopathy Cardiovascular: Tachycardia with regular rhythm, brisk cap refill [] Lungs & Thorax: Non labored symmetric respirations, no tachypnea or respiratory distress [] Abdomen: Soft, nondistended. Skin: Warm, dry, no erythema, no rash. [] Back: No tenderness, no CVA tenderness. [] Extremities: No deformities, range of motion grossly intact, no lower extremity edema [] Neurologic: Alert and oriented X 3, no focal deficits noted. [] Psychologic: Affect normal, judgement normal, mood normal. [] Current Patient Data: Vital Signs: Vital Signs Date Time Temp Pulse Resp B/P (MAP) Pulse Ox O2 Delivery O2 Flow Rate FiO2 09/04/20 09:05 99.7 142 23 158/96 (116) 94 Room Air EKG: EKG: Sinus tachycardia, heart rate 137 bpm, left axis deviation, consistent with LVH, no ectopy. No ST elevation or depression. [] Radiology/Procedures: Radiology/Procedures: EXAM: CT angiography of the chest with intravenous contrast; CT angiogram of the neck with intravenous contrast. HISTORY: Sore throat. Chest pain. TECHNIQUE: Computed tomographic images of the chest and neck were obtained following the administration of intravenous contrast according to angiography protocol. Multiplanar reformatting was performed and three dimensional maximum intensity projection images were obtained. *One or more of the following individualized dose reduction techniques were utilized for this examination: 1. Automated exposure control. 2. Adjustment of the mA and/or kV according to patient size. 3. Use of iterative reconstruction technique. COMPARISON: 04/02/2020. FINDINGS: The airway is patent. There is fairly symmetric enlargement of the bilateral tonsillar soft tissues. No tonsillar or peritonsillar abscess is seen. No retropharyngeal abscess is seen. There is no suspicious enhancing lesion. There are prominent bilateral submandibular and cervical chain lymph nodes. For reference purposes, there is a left submandibular lymph node measuring 2.7 cm in long axis. The parotid, submandibular and thyroid glands are unremarkable. The visualized portions of the brain are unremarkable. The orbits are unremarkable. There is a left maxillary sinus mucous retention cyst. There are degenerative changes involving the cervical spine. This results in foraminal stenosis at multiple levels. There is no acute or suspicious osseous lesion. There is an incidental unerupted left third maxillary molar. There is no evidence of pulmonary embolus. There is cardiomegaly. There is an ectatic aortic arch and proximal descending thoracic aorta. No dissection is seen. No pathologically enlarged lymph node is seen. There is no pneumothorax or pleural effusion. There is bilateral posterior dependent and basilar atelectasis. There is no consolidation. There is a calcified granuloma within the right lung. No suspicious noncalcified nodule is seen. There are splenules adjacent to a normal sized spleen. The liver is prominent in size. There is bilateral perinephric stranding, a nonspecific finding. There are degenerative changes throughout the visualized spine. IMPRESSION: 1. No evidence of pulmonary embolus or alternative acute thoracic finding. 2. Symmetric enlargement of the bilateral tonsillar soft tissues. No abscess is seen. 3. Bilateral submandibular predominant cervical chain lymphadenopathy. This may be reactive in etiology, given the aforementioned tonsillar enlargement. 4. Cardiomegaly and ectatic thoracic aorta. [] Heart Score: Risk Factors: Risk Factors: DM, Current or recent (<one month) smoker, HTN, HLP, family history of CAD, obesity. Risk Scores: Score 0 - 3: 2.5% MACE over next 6 weeks - Discharge Home Score 4 - 6: 20.3% MACE over next 6 weeks - Admit for Clinical Observation Score 7 - 10: 72.7% MACE over next 6 weeks - Early Invasive Strategies Course & Med Decision Making: Course & Med Decision Making Tachycardic on arrival. Responded well to fluids. Patient meets sepsis criteria and has failed outpatient treatment. Given Zosyn and admitted to the hospitalist. [] Dragon Disclaimer: Jero Disclaimer: This electronic medical record was generated, in whole or in part, using a voice recognition dictation system. Departure Departure: Impression: Primary Impression: Sepsis Additional Impression: Strep tonsillitis Disposition: ADMITTED INPT THIS HOSP Admitting Physician: Aditya Chauhan Condition: STABLE Referrals: MONICA LOMELI APRN (PCP) YOLANDA LIU MD Sep 04, 2020 10:23
--- NOTE | 2020-09-04 10:31 | RAD ---
XR CHEST 1V CLINICAL INDICATIONS: Tachycardia COMPARISON: April 02, 2020. Findings: No acute lung infiltrate or pleural effusion or pulmonary edema or lung mass or pneumothora x is seen. The heart size, pulmonary vasculature, mediastinum and both ad are unremarkable. IMPRESSION: No acute radiographic abnormality is seen. Electronically signed by: Dhaval Rangel MD (09/04/2020 10:28 AM) [id number]
[2020-09-04 10:45] LABS: BASO # 0.1 x10^3/uL (0.0-0.2); BASO % 1 % (0-3); EOS % 0 % (0-3); HEMATOCRIT 46.2 % (39.0-53.0); HEMOGLOBIN 15.4 g/dL (13.0-17.5); LYMPH # 1.5 x10^3/uL (1.0-4.8); LYMPH % 9 % (24-48); MEAN CORPUSCULAR HEMOGLOBIN 27 pg (25-35); MEAN CORPUSCULAR HGB CONC 33 g/dL (31-37); MEAN CORPUSCULAR VOLUME 81 fL (79-100); MONO # 1.6 x10^3/uL (0.0-1.1); MONO % 9 % (0-9); NEUT # 13.7 x10^3uL (1.8-7.7); NEUT % 81 % (31-73); PLATELET COUNT 199 x10^3/uL (140-400); RED BLOOD COUNT 5.69 x10^6/uL (4.30-5.70); RED CELL DISTRIBUTION WIDTH 13.4 % (11.5-14.5); WHITE BLOOD COUNT 16.8 x10^3/uL (4.0-11.0)
[2020-09-04 10:51] LABS: CALCIUM 9.1 mg/dL (8.5-10.1); GFR 91.9; POTASSIUM 3.4 mmol/L (3.5-5.1)
[2020-09-04 11:06] LABS: ALBUMIN 3.7 g/dL (3.4-5.0); ALBUMIN/GLOBULIN RATIO 0.9 (1.0-1.7); TOTAL PROTEIN 7.9 g/dL (6.4-8.2)
[2020-09-04] MEDS ORDERED: ACETAMINOPHEN 500 MG TABLET PO ONE (12:00)
[2020-09-04] MEDS ORDERED: IOHEXOL 350 MG/ML 100 ML VIAL. IV ONE (12:00)
[2020-09-04 12:15] LABS: % BANDS 7 % (0-9); % LYMPHS 9 % (24-48); % MONOS 6 % (0-10); % SEGS 78 % (35-66)
[2020-09-04 12:16] LABS: PLT ESTIMATE ADEQUATE (ADEQUATE); TOXIC GRANULATION PRESENT
[2020-09-04 12:17] LABS: TOXIC VACUOLATION PRESENT
[2020-09-04] MEDS ORDERED: PIPERACILLIN/TAZOBACTAM 3.375 GM in IV NORMAL SALINE 50ML 50 ML IV ONE (12:45)
--- NOTE | 2020-09-04 12:47 | RAD ---
EXAM: CT angiography of the chest with intravenous contrast; CT angiogram of the neck with intravenou s contrast. HISTORY: Sore throat. Chest pain. TECHNIQUE: Computed tomographic images of the chest and neck were obtained following the administrati on of intravenous contrast according to angiography protocol. Multiplanar reformatting was performed and three dimensional maximum intensity projection images were obtained. *One or more of the following individualized dose reduction techniques were utilized for this examina tion: 1. Automated exposure control. 2. Adjustment of the mA and/or kV according to patient size. 3. Use of iterative reconstruction technique. COMPARISON: 04/02/2020. FINDINGS: The airway is patent. There is fairly symmetric enlargement of the bilateral tonsillar soft tissues. No tonsillar or peritonsillar abscess is seen. No retropharyngeal abscess is seen. There is no suspicious enhancing lesion. There are prominent bilateral submandibular and cervical chain lymph nodes. For reference purposes, there is a left submandibular lymph node measuring 2.7 cm in long axi s. The parotid, submandibular and thyroid glands are unremarkable. The visualized portions of the brain are unremarkable. The orbits are unremarkable. There is a left maxillary sinus mucous retention cyst. There are degenerative changes involving the cervical spine. This results in foraminal stenosis at m ultiple levels. There is no acute or suspicious osseous lesion. There is an incidental unerupted left third maxillary molar. There is no evidence of pulmonary embolus. There is cardiomegaly. There is an ectatic aortic arch and proximal descending thoracic aorta. No dissection is seen. No pathologically enlarged lymph node is seen. There is no pneumothorax or pleural effusion. There is bilateral posterior dependent and basila r atelectasis. There is no consolidation. There is a calcified granuloma within the right lung. No fried spicious noncalcified nodule is seen. There are splenules adjacent to a normal sized spleen. The liver is prominent in size. There is bilat eral perinephric stranding, a nonspecific finding. There are degenerative changes throughout the visu alized spine. IMPRESSION: 1. No evidence of pulmonary embolus or alternative acute thoracic finding. 2. Symmetric enlargement of the bilateral tonsillar soft tissues. No abscess is seen. 3. Bilateral submandibular predominant cervical chain lymphadenopathy. This may be reactive in etiolo gy, given the aforementioned tonsillar enlargement. 4. Cardiomegaly and ectatic thoracic aorta. Electronically signed by: Haley Wiley MD (09/04/2020 12:44 PM) [id number]
[2020-09-04] MEDS ORDERED: IV NORMAL SALINE 50ML 50 ML ONE ×2 (13:18→13:21)
[2020-09-04] MEDS ORDERED: PIPERACILLIN/TAZOBACTAM 3.375 GM VIAL IV ONE ×2 (13:18→13:21)
--- NOTE | 2020-09-04 14:05 | EKG ---
[address] [address] Test Date: 2020-09-04 Test Time: 09:31:26 Pat Name: GARRY BROTHERS Department: Room: Gender: M [place] Historian: : 1960 Requested By: YOLANDA LIU Order Number: [id number] Reading MD: Brandan Wu Measurements Intervals [place] Rate: 137 P: 50 [place]: 62 QRS: -28 QRSD: 88 T: -54 QT: 320 QTc: 485 Interpretive Statements SINUS TACHYCARDIA LEFTWARD AXIS CONSIDER LEFT VENTRICULAR HYPERTROPHY T ABNORMALITY IN ANTERIOR LEADS INFERIOR LEADS ABNORMAL ECG Electronically Signed On 09-04-2020 15:03:19 CHROME TANNER by Brandan Wu
[2020-09-04] MEDS ORDERED: ONDANSETRON PF 4 MG/2 ML VIAL. IVP PRN (15:30)
[2020-09-04] MEDS ORDERED: ACETAMINOPHEN 325 MG TABLET PO PRN (15:30)
[2020-09-04 20:03] VITALS: BP 149/85
[2020-09-04 23:22] VITALS: BP 141/98
[2020-09-04] MEDS: PIPERACILLIN/TAZOBACTAM 3.375 GM in IV NORMAL SALINE 50ML 50 ML IV SCH (23:44)
[2020-09-05] MEDS ORDERED: METF500T16 PO (00:55)
[2020-09-05] MEDS: PIPERACILLIN/TAZOBACTAM 3.375 GM in IV NORMAL SALINE 50ML 50 ML IV SCH (05:41)
[2020-09-05 05:42] VITALS: BP 147/88
[2020-09-05 06:54] LABS: BASO % 0 % (0-3); EOS % 0 % (0-3); HEMATOCRIT 44.4 % (39.0-53.0); HEMOGLOBIN 14.6 g/dL (13.0-17.5); LYMPH % 6 % (24-48); MEAN CORPUSCULAR HEMOGLOBIN 27 pg (25-35); MEAN CORPUSCULAR HGB CONC 33 g/dL (31-37); MEAN CORPUSCULAR VOLUME 81 fL (79-100); MONO # 1.1 x10^3/uL (0.0-1.1); MONO % 7 % (0-9); NEUT # 13.5 x10^3uL (1.8-7.7); NEUT % 86 % (31-73); PLATELET COUNT 203 x10^3/uL (140-400); RED BLOOD COUNT 5.45 x10^6/uL (4.30-5.70); RED CELL DISTRIBUTION WIDTH 13.4 % (11.5-14.5); WHITE BLOOD COUNT 15.7 x10^3/uL (4.0-11.0)
[2020-09-05 06:58] LABS: CALCIUM 8.3 mg/dL (8.5-10.1); CREATININE 0.9 mg/dL (0.7-1.3); GFR 103.8; POTASSIUM 3.7 mmol/L (3.5-5.1)
[2020-09-05] MEDS ORDERED: LACTOBACILLUS RHAMNOSUS GG 1 CAPSULE. PO SCH (09:00)
[2020-09-05] MEDS ORDERED: DEXAMETHASONE SOD PHOS 10 MG/ML VIAL. IV SCH (09:00)
--- NOTE | 2020-09-05 12:49 | HP ---
ADMIT DATE: 09/04/2020 ATTENDING PHYSICIAN: Dr. Evangelista. CHIEF COMPLAINT: Sore throat. HISTORY OF PRESENT ILLNESS: The patient is a 59-year-old gentleman who has a new onset of throat pain. He had a right ear infection on the right side. There is pus and exudates. There is no stridor. He was admitted for further treatment and evaluation. Evidently, he has been on antibiotics, have been refractory. He was given IV antibiotics. He denies any recent COVID exposure. There is a history of hypertension or diabetes. PAST MEDICAL HISTORY: Significant essential hypertension, type 2 diabetes, some mild arthritis. ALLERGIES: He has no recorded drug allergies. CURRENT MEDICATIONS: Include amoxicillin, Lipitor, lisinopril, metformin, metoprolol, and Januvia. He was started on piperacillin. PAST SURGICAL HISTORY: None. SOCIAL HISTORY: Noncontributory. Does not drink any alcohol. REVIEW OF SYSTEMS: Significant for the localized symptoms. No recent COVID exposure. He has some mild reflux. All other systems reviewed and turned to be negative. PHYSICAL EXAMINATION: GENERAL: When I saw him, this is a pleasant, middle-aged gentleman. INITIAL VITAL SIGNS: Showed a blood pressure 147/80, pulse 75 and regular, temperature 98.2 degrees Fahrenheit, oxygen saturation 100% on room air. HEENT: Head is without trauma. Pupils are reactive. Sclerae nonicteric. Oropharynx is clear. NECK: Supple, no bruits. Throat: There is minimal tonsillitis with exudates on the right tonsillar pillar. There is no stridor. LUNGS: Otherwise clear. CARDIOVASCULAR: Showed regular heart tones. No gallops. ABDOMEN: Soft, no guarding. Bowel sounds are normoactive. EXTREMITIES: Showed no cyanosis or edema. NEUROLOGIC: Focally intact fully ambulatory. Speech is fluent. Spooler Rubber Strand intact. SKIN: Warm and dry. PERTINENT LABORATORY AND X-RAY STUDIES: Admission hemoglobin was 15.4 g with white count of 16,800. Chemistry panel fairly unremarkable. Nonfasting blood sugar 184. ASSESSMENT: 1. A 59-year-old gentleman with acute tonsillitis, refractory to outpatient care. 2. Hypertension. 3. Hyperlipidemia. PLAN: 1. Observation status. 2. Intravenous piperacillin has been ordered. 3. Continue home meds. 4. Diet as tolerated. 5. Monitor for signs of obstruction. LAZARA EVANGELISTA MD DR: DANIEL/dipti JOB#: [id number] / [id number]
--- NOTE | 2020-09-05 12:49 | DS ---
DATE OF DISCHARGE: 09/05/2020 ATTENDING PHYSICIAN: Dr. Evangelista. FINAL DISCHARGE DIAGNOSES: 1. Acute tonsillitis. 2. Tonsillar exudates. 3. Hypertension. 4. Type 2 diabetes. HISTORY OF PRESENT ILLNESS: The patient is a pleasant 59-year-old gentleman, very active. He had new onset of a sore throat, tonsillar pain and exudates on his tonsils. He was admitted for treatment and evaluation, monitoring signs of stridor. PHYSICAL EXAMINATION: Please see the dictated note. PERTINENT LABORATORY AND X-RAY STUDIES: Nonfasting blood sugar was 184. Hemoglobin maintained at 15.4 g/dL with the white count of 16,800. Chest x-ray showed no acute infiltrates. A chest CT showed no pulmonary embolus, bilateral submandibular cervical chain lymphadenopathy consistent with tonsillitis. Soft tissue neck CT showed bilateral submandibular prominent cervical chain lymphadenopathy, reactive in nature. No stridor. Ectatic thoracic aorta, no other abnormalities identified. No PE identified. COURSE IN THE HOSPITAL: The patient was admitted overnight. He was stable. He had no respiratory distress. Blood pressure and vital signs were stable. Oxygen saturations are quite normal on room air. He received a couple doses of IV antibiotics. He was better, he wanted to go home. I recommended 7 more days of p.o. Augmentin 875 mg 1 b.i.d. Other home meds are unchanged, they include his regular scheduled dose of Lipitor, lisinopril, metformin, metoprolol, and Januvia dose is unchanged. He will follow up with his PCP at the [facility]. He was discharged then from our hospital in stable condition with explicit instruction and followup care. LAZARA EVANGELISTA MD DR: DANIEL/dipti JOB#: [id number] / [id number] [place], [place]
== END 2020-09-05 12:02 | disposition home or self-care (01) ==
LOC: ER 09:04 → INTOOBSV 16:00 → ICU 16:00
PROVIDERS: ADMIT Internal Medicine; ATTEND Internal Medicine
DX: A41.9 Sepsis, unspecified organism (principal); Z20.828 Contact with and (suspected) exposure to other viral communicable diseases; J03.00 Acute streptococcal tonsillitis, unspecified; I11.9 Hypertensive heart disease without heart failure; E11.9 Type 2 diabetes mellitus without complications; E78.00 Pure hypercholesterolemia, unspecified; E78.5 Hyperlipidemia, unspecified; H66.91 Otitis media, unspecified, right ear; Z87.891 Personal history of nicotine dependence; Z90.49 Acquired absence of other specified parts of digestive tract; M19.90 Unspecified osteoarthritis, unspecified site; Z79.84 Long term (current) use of oral hypoglycemic drugs; Z98.890 Other specified postprocedural states
CPT/HCPCS: 36415; 70491; 71045; 71275; 80048; 80053; 82947; 83605; 84484; 85007; 85025; 85379; 87040; 87880; 93005; 96361; 96365; 96366; 96375; 96376; G0378; J1100; J2543; J7030; Q9967; U0003; G0379

== ENCOUNTER 2020-12-19 05:25 | Emergency (ER) | payer OTHER ==
[~2020-12-19] VITALS: Ht 175.3 cm; Wt 95.2 kg
[~2020-12-19 05:25] MED LIST changes: -LISI40TA PO; +LISI40TA6 PO
[2020-12-19 05:45] VITALS: BP 178/109
--- NOTE | 2020-12-19 06:28 | PHYS DOC ---
Past History Past Medical History: Diabetes, High Cholesterol, Hypertension Additional Past Medical Histor: Hx. Rt. rotator cuff injury Past Surgical History: Appendectomy Smoking: Non-smoker Alcohol Use: None Drug Use: None General Adult EDM: Chief Complaint: TOE PROBLEM HPI: HPI: 60-year-old male presents with a laceration between the fourth and fifth digits of the right foot. The patient was having a bad dream and was kicking someone when he woke up. He realized that he had kicked into a piece of the bed with his right foot. He looked at his toes and realized that he had a skin tear between the fourth and fifth digit. Patient is a diabetic and did not want to leave this wound open so he came to the emergency room. Bleeding is controlled prior to arrival. He did not rinse it out at home. Patient denies any other injuries or complaints this time. Review of Systems: Review of Systems: Constitutional: Denies fever or chills Eyes: Denies change in visual acuity HENT: Denies nasal congestion or sore throat Respiratory: Denies cough or shortness of breath Cardiovascular: Denies chest pain or edema GI: Denies abdominal pain, nausea, vomiting, bloody stools or diarrhea : Denies dysuria Musculoskeletal: Denies back pain or joint pain Integument: Skin tear right foot Neurologic: Denies headache, focal weakness or sensory changes Endocrine: Denies polyuria or polydipsia Lymphatic: Denies swollen glands Psychiatric: Denies depression or anxiety Allergies: Allergies: Allergies Coded Allergies Type Severity Reaction Last Updated Verified No Known Drug Allergies 12/19/20 No Physical Exam: PE: Constitutional: Well developed, well nourished, no acute distress, non-toxic appearance. [] HENT: Normocephalic, atraumatic, bilateral external ears normal, oropharynx moist, no oral exudates, nose normal. [] Eyes: PERRLA, EOMI, conjunctiva normal, no discharge. [] Neck: Normal range of motion, no tenderness, supple, no stridor. [] Cardiovascular:Heart rate regular rhythm, no murmur [] Lungs & Thorax: Bilateral breath sounds clear to auscultation [] Abdomen: Bowel sounds normal, soft, no tenderness, no masses, no pulsatile masses. [] Skin: 1.5 cm linear laceration between the fourth and fifth toes on the right foot [] Back: No tenderness, no CVA tenderness. [] Extremities: No tenderness, no cyanosis, no clubbing, ROM intact, no edema. [] Neurologic: Alert and oriented X 3, normal motor function, normal sensory function, no focal deficits noted. [] Psychologic: Affect normal, judgement normal, mood normal. [] EKG: EKG: [] Radiology/Procedures: Radiology/Procedures: [] Heart Score: C/O Chest Pain: N/A Risk Factors: Risk Factors: DM, Current or recent (<one month) smoker, HTN, HLP, family history of CAD, obesity. Risk Scores: Score 0 - 3: 2.5% MACE over next 6 weeks - Discharge Home Score 4 - 6: 20.3% MACE over next 6 weeks - Admit for Clinical Observation Score 7 - 10: 72.7% MACE over next 6 weeks - Early Invasive Strategies Course & Med Decision Making: Course & Med Decision Making Pertinent Labs and Imaging studies reviewed. (See chart for details) I discussed repair options with the patient. He has elected for Dermabond repair with jatinder toe taping. See repair note for more details. No antibiotics are indicated at this time. He is stable for discharge. [] Dragon Disclaimer: DragStemSave Disclaimer: This electronic medical record was generated, in whole or in part, using a voice recognition dictation system. Laceration Repair Lac Repair Indication: [] 1.5 cm linear laceration of the right foot Procedure: I obtained verbal consent from the patient for Dermabond repair of his toe laceration. The wound was thoroughly irrigated with normal saline under pressure. One small black object was removed with forceps. No other foreign bodies were found. No anesthesia was used. I placed 2 layers of Dermabond skin adhesive over the wound. There was good skin approximation. Bleeding was controlled. After it dried, the fifth toe was jatinder taped to the fourth toe. No dressing was applied. Total repaired wound length: 1.5 cm Other Items: None The patient tolerated the procedure well. Complications: Small foreign body. Departure Departure: Impression: Primary Impression: Laceration of lesser toe of right foot Qualified Codes: S91.124A - Laceration with foreign body of right lesser toe(s) without damage to nail, initial encounter Disposition: HOME / SELF CARE / HOMELESS Condition: IMPROVED Referrals: MONICA LOMELI APRN (PCP) Patient Instructions: Tissue Adhesive Wound Care, [id number] TJ LADD DO Dec 19, 2020 06:28
== END 2020-12-19 06:44 | disposition home or self-care (01) ==
LOC: ER 05:25
DX: S91.311A Laceration without foreign body, right foot, initial encounter (principal); E11.9 Type 2 diabetes mellitus without complications; E78.00 Pure hypercholesterolemia, unspecified; I10 Essential (primary) hypertension; W22.8XXA Striking against or struck by other objects, initial encounter; Y93.89 Activity, other specified; Y92.89 Other specified places as the place of occurrence of the external cause; Y99.8 Other external cause status
CPT/HCPCS: 12001; 99282

== ENCOUNTER 2021-10-07 02:02 | Emergency (ER) | payer OTHER ==
[~2021-10-07] VITALS: Ht 175.3 cm; Wt 97.0 kg
[2021-10-07] MEDS ORDERED: diphenhydrAMINE HCL 25 MG CAPSULE PO ONE (02:30)
[2021-10-07] MEDS ORDERED: ACETAMINOPHEN 500 MG TABLET PO ONE (02:30)
[2021-10-07] MEDS ORDERED: AMOXICILLIN 250 MG CAPSULE PO ONE (02:30)
[2021-10-07] MEDS ORDERED: IBUPROFEN 600 MG TABLET. PO ONE (02:30)
[2021-10-07] MEDS ORDERED: AMOX500C PO (02:35)
--- NOTE | 2021-10-07 02:35 | PHYS DOC ---
Past History Past Medical History: Diabetes, High Cholesterol, Hypertension Additional Past Medical Histor: Hx. Rt. rotator cuff injury Past Surgical History: Appendectomy Smoking: Non-smoker Alcohol Use: None Drug Use: None Adult General HPI HPI Patient is a 60-year-old male who presents with sore throat for about a day with some nasal congestion and postnasal drainage with some body aches. States he has been fully vaccinated and has had Covid in the past. Denies recent travel, travels, chest pain, shortness of breath, abdominal pain, nausea, vomiting, diarrhea. States he is eating and drinking normally for him. States he is making urine and stool normally for him. States he has had strep throat multiple times in the past as an adult. Review of Systems Review of Systems Review of systems otherwise unremarkable except noted in HPI Allergies Allergies Allergies Coded Allergies Type Severity Reaction Last Updated Verified No Known Drug Allergies 12/19/20 No Physical Exam Physical Exam Constitutional: Well developed, well nourished, no acute distress, non-toxic appearance. [] HENT: Normocephalic, atraumatic, bilateral external ears normal, oropharynx moist, posterior oropharyngeal erythema with no oral exudates, nose normal. [] Eyes: conjunctiva normal, no discharge. [] Neck: Normal range of motion, no tenderness, supple, no stridor bilateral cervical lymphadenopathy. [] Cardiovascular:Heart rate regular rhythm, no murmur [] Lungs & Thorax: Bilateral breath sounds clear to auscultation [] Abdomen: Bowel sounds normal, soft, no tenderness, no masses, no pulsatile masses. [] Skin: Warm, dry, no erythema, no rash. [] Back: No tenderness, no CVA tenderness. [] Extremities: No tenderness, no cyanosis, no clubbing, ROM intact, no edema. [] Neurologic: Alert and oriented X 3, normal motor function, normal sensory function, no focal deficits noted. [] Psychologic: Affect normal, judgement normal, mood normal. [] EKG EKG [] Radiology/Procedures Radiology/Procedures [] Heart Score C/O Chest Pain: No Risk Factors: Risk Factors: DM, Current or recent (<one month) smoker, HTN, HLP, family history of CAD, obesity. Risk Scores: Risk Factors: DM, Current or recent (<one month) smoker, HTN, HLP, family history of CAD, obesity. Course & Med Decision Making Course & Med Decision Making Patient is a 60-year-old male presents with sore throat Vital signs notable for hypertension. Physical exam noted above. COVID flu swab pending. Given patient's history of multiple episodes of strep throat and high Centor criteria, patient started on amoxicillin for strep throat instead of getting a significantly less than 100% sensitivity strep swab. Discussed symptom management at home. Given medications for symptoms in the ED to start. Advised we would be calling shortly with results of Covid and flu and if either the Covid or flu swab were positive he did not need to continue his antibiotics. Advised if both of these were negative he should continue his amoxicillin as strep pharyngitis likely given his history. Advised to follow-up in the morning with his primary care physician and set up a follow-up. Gave return cautions to the ED. Patient grateful, verbalized understanding and agreed with plan of discharge. [] Dragon Disclaimer Dragon Disclaimer This electronic medical record was generated, in whole or in part, using a voice recognition dictation system. Departure Departure: Impression: Primary Impression: Pharyngitis Additional Impression: Person under investigation for COVID-19 Disposition: HOME / SELF CARE / HOMELESS Condition: STABLE Referrals: MONICA LOMELI APRN (PCP) Patient Instructions: Viral Syndrome, Viral and Bacterial Pharyngitis Additional Instructions: Thank for coming into the emergency department tonight and allowing us to take care of you. Please read the attached information carefully to go over things we discussed. You can begin a regimen of 1000 mg of Tylenol every 8 hours, 800 mg of ibuprofen every 8 hours, 50 mg of Benadryl every 6 hours and cough drops to help control symptoms at home. As we discussed we will be calling you very soon to update you on your Covid/flu status. If you are Covid and flu swabs are negative, as we discussed please continue your amoxicillin for strep throat. If indeed either your influenza or Covid swabs are positive you do not need to continue your antibiotics but would still be lemos to use the [id number] medications to control your symptoms. Please call your primary care physician in the morning to update on your ED visit and set up a follow-up visit as soon as you can. Please come back with new or concerning symptoms as discussed. Scripts Amoxicillin (AMOXICILLIN) 500 Mg Capsule 2 CAP PO BID for strep throat for 10 Days, #39 CAP Prov: MARGARITA MAXWELL MD 10/07/21 Problem Qualifiers MARGARITA MAXWELL MD Oct 07, 2021 02:35
[2021-10-07 03:06] LABS: INFLUENZA A PATIENT NEGATIVE (NEGATIVE); INFLUENZA B PATIENT NEGATIVE (NEGATIVE)
[2021-10-07 03:13] VITALS: BP 152/92
== END 2021-10-07 03:15 | disposition home or self-care (01) ==
LOC: ER 02:02
DX: J02.9 Acute pharyngitis, unspecified (principal); Z20.822 Contact with and (suspected) exposure to COVID-19; E11.9 Type 2 diabetes mellitus without complications; E78.00 Pure hypercholesterolemia, unspecified; I10 Essential (primary) hypertension
CPT/HCPCS: 87428; 99284; Q0163

== ENCOUNTER 2021-10-09 15:32 | Emergency (ER) | payer OTHER ==
[~2021-10-09] VITALS: Ht 175.3 cm; Wt 97.0 kg
[~2021-10-09 15:32] MED LIST changes: +AMOX500C PO
[2021-10-09 15:40] VITALS: BP 133/88
[2021-10-09] MEDS ORDERED: IOHEXOL 300 MG/ML 75 ML VIAL. IV ONE (16:30)
[2021-10-09] MEDS ORDERED: DEXAMETHASONE SOD PHOS 10 MG/ML VIAL. IVP ONE (16:30)
[2021-10-09 17:22] LABS: CALCIUM 9.3 mg/dL (8.5-10.1); CREATININE 0.9 mg/dL (0.7-1.3); GFR 103.5; POTASSIUM 4.5 mmol/L (3.5-5.1)
[2021-10-09 17:27] LABS: BASO # 0.1 x10^3/uL (0.0-0.2); BASO % 1 % (0-3); EOS # 0.1 x10^3/uL (0.0-0.7); EOS % 2 % (0-3); HEMATOCRIT 44.4 % (39.0-53.0); HEMOGLOBIN 14.6 g/dL (13.0-17.5); LYMPH % 39 % (24-48); MEAN CORPUSCULAR HEMOGLOBIN 28 pg (25-35); MEAN CORPUSCULAR HGB CONC 33 g/dL (31-37); MEAN CORPUSCULAR VOLUME 84 fL (79-100); MONO # 0.6 x10^3/uL (0.0-1.1); MONO % 11 % (0-9); NEUT # 2.5 x10^3uL (1.8-7.7); NEUT % 47 % (31-73); PLATELET COUNT 241 x10^3/uL (140-400); RED BLOOD COUNT 5.26 x10^6/uL (4.30-5.70); RED CELL DISTRIBUTION WIDTH 13.1 % (11.5-14.5); WHITE BLOOD COUNT 5.2 x10^3/uL (4.0-11.0)
[2021-10-09 17:28] LABS: ALBUMIN 3.7 g/dL (3.4-5.0); TOTAL BILIRUBIN 0.5 mg/dL (0.2-1.0); TOTAL PROTEIN 7.4 g/dL (6.4-8.2)
--- NOTE | 2021-10-09 18:08 | RAD ---
CT scan of the neck with contrast 10/09/2021 CLINICAL HISTORY: Sore throat for 2 days. TECHNIQUE: After the intravenous administration of 75 cc of Omnipaque 300, contiguous, 0.625 mm axial sections were obtained through the neck. 3 mm reconstructed sagittal, axial and coronal images were obtained. One or more of the following individualized dose reduction techniques were utilized for this study: 1. Automated exposure control. 2. Adjustment of the mA and/or kV according to patient size. 3. Use of iterative reconstruction technique. FINDINGS: The adenoid, palatine and lingual tonsils are prominent. No abnormal fluid collection is se en to suggest evidence of an abscess. The epiglottis and mucosal structures of the larynx are within normal limits. No abnormal soft tissue mass or fluid collection is seen. Reactive lymph nodes are see n scattered throughout the neck which measure 5 mm to 2 cm in size. The parotid and submandibular glands are within normal limits. The thyroid gland is within normal rm its. The orbits are within normal limits. A 1.6 cm mucous retention cyst is involving left maxillary sinus. The paranasal sinuses are otherwise clear. The mastoid air cells and middle ear cavities are c lear. Degenerative changes are seen involving the uncovertebral and facet joints throughout the cervical di sc spaces. IMPRESSION: Tonsillar prominence as discussed above. No abscess is seen. Electronically signed by: Orion Stack MD (10/09/2021 6:06 PM) [id number]
--- NOTE | 2021-10-09 18:45 | PHYS DOC ---
Past History Past Medical History: Diabetes, High Cholesterol, Hypertension Additional Past Medical Histor: Hx. Rt. rotator cuff injury, strep throat (JB APONTE APRN) Past Surgical History: Appendectomy (JB APONTE APRN) Smoking: Non-smoker Alcohol Use: None Drug Use: None (JB APONTE APRN) Adult General Chief Complaint Chief Complaint: SORE THROAT HPI HPI Patient is a 60-year-old male patient with a history of diabetes type 2, hypertension, high cholesterol, who presents to the ED today complaining of a sore throat and hoarse voice, he states he was diagnosed with strep tonsillitis 2 days ago and started on amoxicillin. He states now his voice is gone. Denies any fever, coughing, congestion. He states he is fully vaccinated against COVID 19 including receiving a booster received last year (JB APONTE APRN) Review of Systems Review of Systems Constitutional: Denies fever or chills [] Eyes: Denies change in visual acuity, redness, or eye pain [] HENT: Reports sore throat and hoarse voice, denies nasal congestion Respiratory: Denies cough or shortness of breath [] Cardiovascular: No additional information not addressed in HPI [] GI: Denies abdominal pain, nausea, vomiting, bloody stools or diarrhea [] : Denies dysuria or hematuria [] Musculoskeletal: Denies back pain or joint pain [] Integument: Denies rash or skin lesions [] Neurologic: Denies headache, focal weakness or sensory changes [] All other systems were reviewed and found to be within normal limits, except as documented in this note. (JB APONTE APRN) Current Medications Current Medications Current Medications Medications (Trade) Dose Ordered Sig/Ryan Start Time Stop Time Status Last Admin Dose Admin Dexamethasone Sodium Phosphate (Decadron) 10 mg 1X ONCE 10/09/21 16:30 10/09/21 16:31 DC 10/09/21 16:20 10 MG Iohexol (Omnipaque 300 Mg/ml) 75 ml 1X ONCE 10/09/21 16:30 10/09/21 16:31 DC 10/09/21 17:32 75 ML (JB APONTE [employer] GRADING SUPERVISOR) Allergies Allergies Allergies Coded Allergies Type Severity Reaction Last Updated Verified No Known Drug Allergies 12/19/20 No (MUTUNGA,JB M ROSE GRADING SUPERVISOR) Physical Exam Physical Exam Constitutional: Well developed, well nourished, no acute distress, non-toxic appearance. [] HENT: Normocephalic, atraumatic, bilateral external ears normal, oropharynx moist, no oral exudates, nose normal. [] posterior pharynx with mild erythema no exudates. +2 anterior cervical adenopathy Eyes: PERRLA, EOMI, conjunctiva normal, no discharge. [] Neck: Normal range of motion, no tenderness, supple, no stridor. [] Cardiovascular:Heart rate regular rhythm, no murmur [] Lungs & Thorax: Bilateral breath sounds clear to auscultation [] Abdomen: Bowel sounds normal, soft, no tenderness, no masses, no pulsatile masses. [] Skin: Warm, dry, no erythema, no rash. [] Back: No tenderness, no CVA tenderness. [] Extremities: No tenderness, no cyanosis, no clubbing, ROM intact, no edema. [] Neurologic: Alert and oriented X 3, normal motor function, normal sensory function, no focal deficits noted. [] Psychologic: Affect normal, judgement normal, mood normal. [] (JB APONTE M ROSE GRADING SUPERVISOR) Current Patient Data Vital Signs Vital Signs Date Time Temp Pulse Resp B/P (MAP) Pulse Ox O2 Delivery O2 Flow Rate FiO2 10/09/21 15:40 97.9 82 16 133/88 (103) 96 Lab Results Laboratory Tests Test 10/09/21 16:50 White Blood Count 5.2 x10^3/uL (4.0-11.0) Red Blood Count 5.26 x10^6/uL (4.30-5.70) Hemoglobin 14.6 g/dL (13.0-17.5) Hematocrit 44.4 % (39.0-53.0) Mean Corpuscular Volume 84 fL (79-100) Mean Corpuscular Hemoglobin 28 pg (25-35) Mean Corpuscular Hemoglobin Concent 33 g/dL (31-37) Red Cell Distribution Width 13.1 % (11.5-14.5) Platelet Count 241 x10^3/uL (140-400) Neutrophils (%) (Auto) 47 % (31-73) Lymphocytes (%) (Auto) 39 % (24-48) Monocytes (%) (Auto) 11 % (0-9) H Eosinophils (%) (Auto) 2 % (0-3) Basophils (%) (Auto) 1 % (0-3) Neutrophils # (Auto) 2.5 x10^3uL (1.8-7.7) Lymphocytes # (Auto) 2.0 x10^3/uL (1.0-4.8) Monocytes # (Auto) 0.6 x10^3/uL (0.0-1.1) Eosinophils # (Auto) 0.1 x10^3/uL (0.0-0.7) Basophils # (Auto) 0.1 x10^3/uL (0.0-0.2) Sodium Level 138 mmol/L (136-145) Potassium Level 4.5 mmol/L (3.5-5.1) Chloride Level 101 mmol/L (98-107) Carbon Dioxide Level 28 mmol/L (21-32) Anion Gap 9 (6-14) Blood Urea Nitrogen 13 mg/dL (8-26) Creatinine 0.9 mg/dL (0.7-1.3) Estimated GFR (Cockcroft-Gault) 103.5 BUN/Creatinine Ratio 14 (6-20) Glucose Level 295 mg/dL (70-99) H Calcium Level 9.3 mg/dL (8.5-10.1) Total Bilirubin 0.5 mg/dL (0.2-1.0) Aspartate Amino Transferase (AST) 26 U/L (15-37) Alanine Aminotransferase (ALT) 29 U/L (16-63) Alkaline Phosphatase 141 U/L (46-116) H Total Protein 7.4 g/dL (6.4-8.2) Albumin 3.7 g/dL (3.4-5.0) Albumin/Globulin Ratio 1.0 (1.0-1.7) (JB APONTE APRN) EKG EKG [] (JB APONTE APRN) Radiology/Procedures Radiology/Procedures PROCEDURE: CT SOFT TISSUE NECK W/CONTRAST CT scan of the neck with contrast 10/09/2021 CLINICAL HISTORY: Sore throat for 2 days. TECHNIQUE: After the intravenous administration of 75 cc of Omnipaque 300, contiguous, 0.625 mm axial sections were obtained through the neck. 3 mm reconstructed sagittal, axial and coronal images were obtained. One or more of the following individualized dose reduction techniques were utilized for this study: 1. Automated exposure control. 2. Adjustment of the mA and/or kV according to patient size. 3. Use of iterative reconstruction technique. FINDINGS: The adenoid, palatine and lingual tonsils are prominent. No abnormal fluid collection is seen to suggest evidence of an abscess. The epiglottis and mucosal structures of the larynx are within normal limits. No abnormal soft tissue mass or fluid collection is seen. Reactive lymph nodes are seen scattered throughout the neck which measure 5 mm to 2 cm in size. The parotid and submandibular glands are within normal limits. The thyroid gland is within normal limits. The orbits are within normal limits. A 1.6 cm mucous retention cyst is involving left maxillary sinus. The paranasal sinuses are otherwise clear. The mastoid air cells and middle ear cavities are clear. Degenerative changes are seen involving the uncovertebral and facet joints throughout the cervical disc spaces. IMPRESSION: Tonsillar prominence as discussed above. No abscess is seen. Electronically signed by: Orion Satck MD (10/09/2021 6:06 PM) [id number] DICTATED AND SIGNED BY: ORION STACK MD DATE: 10/09/211751 CC: MONICA LOMELI APRN; JB APONTE APRN ~MTH0 0 (JB APONTE APRN) Heart Score C/O Chest Pain: N/A Risk Factors: Risk Factors: DM, Current or recent (<one month) smoker, HTN, HLP, family history of CAD, obesity. Risk Scores: Risk Factors: DM, Current or recent (<one month) smoker, HTN, HLP, family history of CAD, obesity. (JB APONTE APRN) Course & Med Decision Making Course & Med Decision Making Pertinent Labs and Imaging studies reviewed. (See chart for details) This is a 60-year-old male patient presented to the ED today complaining of a sore throat for 2 days, he states his voice is currently hoarse. CBC with no acute findings, CMP with glucose of 295, anion gap is normal, CO2 is normal, history of diabetes type 2. CT of neck soft tissue was noted for enlarged tonsils otherwise no peritonsillar abscess. He is currently on amoxicillin. He is only day 3 on antibiotics. Encouraged him to continue taking his antibiotics until completed. Salt water gargles also recommended. Instructed him to rest his voice. Tylenol or Motrin for pain. Follow-up with ENT or PCP in a week. Instructed to return to the ED at any point symptoms worsen (JB APONTE APRN) Dragon Disclaimer Dragon Disclaimer This electronic medical record was generated, in whole or in part, using a voice recognition dictation system. (JB APONTE APRN) Departure Departure: Impression: Primary Impression: Laryngitis, acute Additional Impression: Acute tonsillitis Disposition: HOME / SELF CARE / HOMELESS Condition: STABLE Referrals: MONICA LOMELI APRN (PCP) follow up in one week with your doctor Patient Instructions: Laryngitis, [id number], Tonsillitis Additional Instructions: You were evaluated in the emergency room and noted to have enlarged tonsils. Please continue taking your antibiotics until completed. You can take Tylenol or Motrin for pain or fever. Push fluids. Follow-up with your own primary care doctor or the provided ENT in [address] Ashley Ernandez [facility] [address] [facility] [address] [address] Attending Signature Attending Signature I have participated in the care of this patient and I have reviewed and agree with all pertinent clinical information above including history, exam, and recommendations. (JOSUÉ BURRIS MD) Dragon Disclaimer This chart was dictated in whole or in part using Voice Recognition software in a busy, high-work load, and often noisy Emergency Department environment. It may contain unintended and wholly unrecognized errors or omissions. (JOSUÉ BURRIS MD) Problem Qualifiers Additional Impression: Acute tonsillitis Pharyngitis/tonsillitis etiology: unspecified etiology Qualified Codes: J03.90 - Acute tonsillitis, unspecified JB APONTE APRN Oct 09, 2021 18:44 JOSUÉ BURRIS MD Oct 10, 2021 06:29
== END 2021-10-09 19:00 | disposition home or self-care (01) ==
LOC: ER 15:32
DX: J03.90 Acute tonsillitis, unspecified (principal); J04.0 Acute laryngitis; E11.9 Type 2 diabetes mellitus without complications; E78.00 Pure hypercholesterolemia, unspecified; I10 Essential (primary) hypertension
CPT/HCPCS: 36415; 70491; 80053; 85025; 96374; 99285; J1100; Q9967

== ENCOUNTER 2021-11-11 02:26 | Emergency (ER) | payer OTHER ==
[~2021-11-11] VITALS: Ht 175.3 cm; Wt 96.1 kg
--- NOTE | 2021-11-11 02:58 | RAD ---
AP chest x-ray HISTORY: Chest pain. COMPARISON: CT chest September 04, 2020 FINDINGS: Moderate cardiomegaly is stable. Mild elevation or eventration of the right diaphragm is st able. No pneumothorax, pulmonary opacities or pleural effusions. Bones are unremarkable. IMPRESSION: No acute process. Electronically signed by: Timothy Shine MD (11/11/2021 2:56 AM) [facility]
[2021-11-11] MEDS ORDERED: ASPIRIN 325 MG TABLET PO ONE (03:00)
[2021-11-11] MEDS ORDERED: IV RINGERS SOLUTION,LACTATED 1,000 ML IV SCH (03:00)
[2021-11-11] MEDS ORDERED: NITROGLYCERIN OINT 1 GM PACKET. TP ONE (03:00)
--- NOTE | 2021-11-11 03:07 | EKG ---
[address] [address] Test Date: 2021-11-11 Test Time: 02:40:15 Pat Name: GARRY BROTHERS Department: Room: Gender: M Frame [employer]der [employer]: : 1960 Requested By: JOSUÉ BURRIS Order Number: [id number] Reading MD: Measurements Intervals [place] Rate: 71 P: 26 MD: 162 QRS: -26 QRSD: 94 T: 0 QT: 408 QTc: 448 Interpretive Statements SINUS RHYTHM LEFTWARD AXIS QRS(T) CONTOUR ABNORMALITY CONSIDER ANTEROSEPTAL MYOCARDIAL DAMAGE POSSIBLY ABNORMAL ECG RI6.01 No previous ECG available for comparison
--- NOTE | 2021-11-11 03:10 | PHYS DOC ---
Past History Past Medical History: Diabetes, High Cholesterol, Hypertension Additional Past Medical Histor: Hx. Rt. rotator cuff injury, strep throat Past Medical History Sleep apnea Past Surgical History: No Surgical History Smoking: Non-smoker Alcohol Use: None Drug Use: None General Adult EDM: Chief Complaint: CHEST PAIN HPI: HPI: ".. I woke up with this central chest pain.. it would not go away.. and I had a really fast heart rate... " " I did forget to take my BP meds tonight before going to sleep. Patient is a 60 year old male who presents with central chest pain and tachycardia. Patient denies previous history of coronary artery disease or [place]. Patient does have a history of hypertension and sleep apnea. Patient has been compliant with his meds. No history of trauma. No history of travel. No history of specific ill contacts. Has not gotten flu vaccination but did get 2 COVID vaccinations. Patient normally follows with Candi Murrieta. Review of Systems: Review of Systems: Constitutional: Denies fever or chills Eyes: Denies change in visual acuity HENT: Denies nasal congestion or sore throat Respiratory: Denies cough or shortness of breath Cardiovascular: Complains of central chest pain and tachycardia GI: Denies abdominal pain, nausea, vomiting, bloody stools or diarrhea : Denies dysuria Musculoskeletal: Denies back pain or joint pain Integument: Denies rash Neurologic: Denies headache, focal weakness or sensory changes Endocrine: Denies polyuria or polydipsia Lymphatic: Denies swollen glands Psychiatric: Denies depression or anxiety Family History: Family History: Noncontributory to presentation Current Medications: Current Meds: Current Medications Medications (Trade) Dose Ordered Sig/Ryan Start Time Stop Time Status Last Admin Dose Admin Aspirin (Amaris Aspirin) 325 mg 1X ONCE 11/11/21 03:00 11/11/21 03:01 DC 11/11/21 02:54 325 MG Lactated Ringer's 1,000 ml @ 100 mls/hr Q10H 11/11/21 03:00 11/11/21 12:59 11/11/21 02:55 100 MLS/HR Nitroglycerin (Nitro-Bid Oint) 1 inch 1X ONCE 11/11/21 03:00 11/11/21 03:01 DC 11/11/21 02:54 1 INCH Allergies: Allergies: Allergies Coded Allergies Type Severity Reaction Last Updated Verified No Known Drug Allergies 11/11/21 No Physical Exam: PE: Constitutional: W moderate acute distress, non-toxic appearance. [] HENT: Normocephalic, atraumatic, bilateral external ears normal, oropharynx moist, no oral exudates, nose normal. [] Eyes: PERRLA, EOMI, conjunctiva normal, no discharge. [] Neck: Normal range of motion, no tenderness, supple, no stridor. [] Cardiovascular: Tachycardia heart rate regular rhythm, no murmur [] bedside monitor shows a sinus rhythm with no acute abnormality. Lungs & Thorax: Bilateral breath sounds equal apex on auscultation [] Abdomen: Bowel sounds normal, soft, no tenderness, no masses, no pulsatile masses. Umbilicus hernia. Skin: Warm, dry, no erythema, no rash. [] Back: No tenderness, no CVA tenderness. [] Extremities: No tenderness, no cyanosis, no clubbing, ROM intact, no edema. No cording appreciated. Neurologic: Alert and oriented X 3, normal motor function, normal sensory function, no focal deficits noted. [] Psychologic: Affect anxious., judgement normal, mood normal. [] Current Patient Data: Vital Signs: Vital Signs Date Time Temp Pulse Resp B/P (MAP) Pulse Ox O2 Delivery O2 Flow Rate FiO2 11/11/21 02:54 75 162/96 11/11/21 02:37 98.2 20 96 EKG: EKG: My interpretation EKG shows a sinus rhythm at 71 bpm. Does have some left axis changes. Does have some findings anterior septal conduction abnormalities, would consider this an abnormal EKG. But no findings of acute STEMI with contralateral changes. Time of EKG is 240 hours [] My interpretation of second EKG shows a sinus rhythm at 68 bpm. There is some leftward axis. Some nonspecific anterior septal changes. But no findings of acute STEMI with contralateral changes. There is no significant interval changes between prior EKG and this EKG. Time of this EKG is 0512 hrs. Radiology/Procedures: Radiology/Procedures: [address] [address] IMAGING REPORT Signed PATIENT: GARRY BROTHERS ACCOUNT: [id number] : 1960 LOCATION: ER AGE: 60 SEX: M EXAM STATUS: REG ER ORD. PHYSICIAN: JOSUÉ BURRIS MD REASON: Chest pain PROCEDURE: PORTABLE CHEST 1V AP chest x-ray HISTORY: Chest pain. COMPARISON: CT chest September 04, 2020 FINDINGS: Moderate cardiomegaly is stable. Mild elevation or eventration of the right diaphragm is stable. No pneumothorax, pulmonary opacities or pleural effusions. Bones are unremarkable. IMPRESSION: No acute process. Electronically signed by: Nunu Shine MD (11/11/2021 2:56 AM) [facility] DICTATED AND SIGNED BY: NUNU SHINE MD DATE: 11/11/21253 CC: JOSUÉ BURRIS MD; MONICA MURRIETA FILLER AND TRIMMER ~MTH0 0 [][address] [place] [address] IMAGING REPORT Signed PATIENT: GARRY BROTHERS ACCOUNT: [id number] : 1960 LOCATION: ER AGE: 60 SEX: M EXAM STATUS: REG ER ORD. PHYSICIAN: JOSUÉ BURRIS MD REASON: pleuritic cp, elev. d-dimer Omni 350 100cc PROCEDURE: CT ANGIOGRAPHY CHEST CT angiography chest with contrast PQRS statement: CT scans at this facility use dose reduction including either automated exposure control, iterative reconstructions, and /or weight based radiation dosing via mA and kV modification when appropriate to reduce radiation dose to as low as reasonably achievable. HISTORY: Pleuritic chest pain, elevated d-dimer. Contrast: 100 mL Omnipaque 350 intravenous contrast. 3-D MIP projections of the arteries were acquired. COMPARISON: CTA chest September 04, 2020 FINDINGS: Cardiomegaly similar to prior exam. There is borderline fusiform aneurysm of the posterior aortic arch at its junction with the descending thoracic aorta with a diameter of 4.0 cm, this is similar to the prior exam. The ascending thoracic aorta diameter is ectatic measuring 3.8 cm. Left coronary calcified plaque. Esophagus is normal. No enlarged adenopathy within the chest. No pulmonary artery emboli. There is eventration of the right diaphragm anteriorly with mild passive atelectasis of the right lung base stable to prior study. Calcified granulomas within the chest. No pneumothorax, pulmonary opacities or pleural effusions. Bones normal. IMPRESSION: 1. No acute process in the chest. No pulmonary artery emboli. 2. Left coronary calcified plaque. 3. 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 There is ectasia of the ascending thoracic aorta with a diameter of 3.8 cm. Electronically signed by: Nunu Shine MD (11/11/2021 4:40 AM) [facility] DICTATED AND SIGNED BY: UNNU SHINE MD DATE: 11/11/21 0432 CC: JOSUÉ BURRIS MD; MONICA MURRIETA APRN ~MTH0 0 Heart Score: C/O Chest Pain: Yes HEART Score for Chest Pain: HEART Score for Chest Pain Response (Comments) Value History Moderately Suspicious 1 ECG Nonspecific Repolarizatio 1 Age >45 - < 65 1 Risk Factors 1 or 2 Risk Factors 1 Troponin < Normal Limit 0 Total 4 Risk Factors: Risk Factors: DM, Current or recent (<one month) smoker, HTN, HLP, family history of CAD, obesity. Risk Scores: Score 0 - 3: 2.5% MACE over next 6 weeks - Discharge Home Score 4 - 6: 20.3% MACE over next 6 weeks - Admit for Clinical Observation Score 7 - 10: 72.7% MACE over next 6 weeks - Early Invasive Strategies Course & Med Decision Making: Course & Med Decision Making ddPertinent Labs and Imaging studies reviewed. (See chart for details) Patient take cardiac meds. Directed. Patient take hypertensive meds as directed. Patient follow-up primary care. Patient consider outpatient cardiology stress testing. Return if any concern. Take hypertensive meds as directed. Consider outpatient stress testing discussed this with Dr. Murrieta. Impression: 1. Chest pain 2. Accelerated hypertension 3. Aortic arch aneurysm 4 cm. 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 4. Elevation D-dimer 1.05 [] Dragon Disclaimer: Dragzia Disclaimer: This electronic medical record was generated, in whole or in part, using a voice recognition dictation system. Departure Departure: Referrals: MONICA MURRIETA APRN (PCP) Jero Disclaimer This chart was dictated in whole or in part using Voice Recognition software in a busy, high-work load, and often noisy Emergency Department environment. It may contain unintended and wholly unrecognized errors or omissions. Dragon Disclaimer This chart was dictated in whole or in part using Voice Recognition software in a busy, high-work load, and often noisy Emergency Department environment. It may contain unintended and wholly unrecognized errors or omissions. JOSUÉ BURRIS MD Nov 11, 2021 03:10
[2021-11-11 03:13] LABS: BASO # 0.1 x10^3/uL (0.0-0.2); BASO % 2 % (0-3); EOS # 0.1 x10^3/uL (0.0-0.7); EOS % 2 % (0-3); HEMATOCRIT 42.2 % (39.0-53.0); HEMOGLOBIN 13.9 g/dL (13.0-17.5); LYMPH # 2.5 x10^3/uL (1.0-4.8); LYMPH % 48 % (24-48); MEAN CORPUSCULAR HEMOGLOBIN 28 pg (25-35); MEAN CORPUSCULAR HGB CONC 33 g/dL (31-37); MEAN CORPUSCULAR VOLUME 84 fL (79-100); MONO # 0.5 x10^3/uL (0.0-1.1); MONO % 10 % (0-9); NEUT # 1.9 x10^3uL (1.8-7.7); NEUT % 38 % (31-73); PLATELET COUNT 211 x10^3/uL (140-400); RED BLOOD COUNT 5.03 x10^6/uL (4.30-5.70); RED CELL DISTRIBUTION WIDTH 13.3 % (11.5-14.5); WHITE BLOOD COUNT 5.1 x10^3/uL (4.0-11.0)
[2021-11-11 03:23] LABS: CALCIUM 8.8 mg/dL (8.5-10.1); CREATININE 0.9 mg/dL (0.7-1.3); GFR 103.5; POTASSIUM 3.7 mmol/L (3.5-5.1)
[2021-11-11 03:31] LABS: INFLUENZA A PATIENT NEGATIVE (NEGATIVE); INFLUENZA B PATIENT NEGATIVE (NEGATIVE)
[2021-11-11 03:37] LABS: ALBUMIN 3.6 g/dL (3.4-5.0); DIRECT BILIRUBIN 0.1 mg/dL (0.0-0.2); MAGNESIUM 1.7 mg/dL (1.8-2.4); TOTAL BILIRUBIN 0.5 mg/dL (0.2-1.0); TOTAL PROTEIN 6.6 g/dL (6.4-8.2)
[2021-11-11] MEDS ORDERED: CONTRAST GIVEN. MC PRN (04:00)
[2021-11-11] MEDS ORDERED: IOHEXOL 350 MG/ML 100 ML VIAL. IV ONE (04:30)
--- NOTE | 2021-11-11 04:42 | RAD ---
CT angiography chest with contrast PQRS statement: CT scans at this facility use dose reduction including either automated exposure cont rol, iterative reconstructions, and /or weight based radiation dosing via mA and kV modification when appropriate to reduce radiation dose to as low as reasonably achievable. HISTORY: Pleuritic chest pain, elevated d-dimer. Contrast: 100 mL Omnipaque 350 intravenous contrast. 3-D MIP projections of the arteries were acquire d. COMPARISON: CTA chest September 04, 2020 FINDINGS: Cardiomegaly similar to prior exam. There is borderline fusiform aneurysm of the posterior aortic arch at its junction with the descending thoracic aorta with a diameter of 4.0 cm, this is sim ilar to the prior exam. The ascending thoracic aorta diameter is ectatic measuring 3.8 cm. Left coron nayely calcified plaque. Esophagus is normal. No enlarged adenopathy within the chest. No pulmonary roman ry emboli. There is eventration of the right diaphragm anteriorly with mild passive atelectasis of th e right lung base stable to prior study. Calcified granulomas within the chest. No pneumothorax, pulm onary opacities or pleural effusions. Bones normal. IMPRESSION: 1. No acute process in the chest. No pulmonary artery emboli. 2. Left coronary calcified plaque. 3. 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 There is ecta ruth ann of the ascending thoracic aorta with a diameter of 3.8 cm. Electronically signed by: Timothy Shine MD (11/11/2021 4:40 AM) [facility]
[2021-11-11 05:03] VITALS: BP 160/91
[2021-11-11 05:36] LABS: BACTERIA,URINE FEW /HPF (0-FEW); CLARITY,URINE CLEAR; COLOR,URINE YELLOW; GLUCOSE,URINE NEG (NEG); NITRITE,URINE NEG (NEG); RBC,URINE 0 /HPF (0-2); SQUAMOUS EPITHELIAL CELL,UR OCC /LPF; UROBILINOGEN,URINE 0.2 mg/dL (0.2 mg/dL)
--- NOTE | 2021-11-11 05:58 | EKG ---
[address] [address] Test Date: 2021-11-11 Test Time: 05:12:37 Pat Name: GARRY BROTHERS Department: Room: Gender: M Psychology Associate: : 1960 Requested By: JOSUÉ BURRIS Order Number: [id number] Reading MD: Measurements Intervals [place] Rate: 68 P: 50 [place]: 172 QRS: -24 QRSD: 92 T: -10 QT: 374 QTc: 402 Interpretive Statements SINUS RHYTHM LEFTWARD AXIS QRS(T) CONTOUR ABNORMALITY CONSIDER ANTEROSEPTAL MYOCARDIAL DAMAGE T ABNORMALITY IN INFERIOR LEADS ABNORMAL ECG RI6.01 No previous ECG available for comparison
[2021-11-11 18:28] LABS: CHOLESTEROL/HDL RATIO 4.7
[2021-11-11 18:29] LABS: THYROID STIM HORMONE (TSH) 1.485 uIU/mL (0.358-3.740)
== END 2021-11-11 06:04 | disposition home or self-care (01) ==
LOC: ER 02:26
DX: I10 Essential (primary) hypertension (principal); I71.2 Thoracic aortic aneurysm, without rupture; R79.1 Abnormal coagulation profile; E11.9 Type 2 diabetes mellitus without complications; E78.00 Pure hypercholesterolemia, unspecified; Z20.822 Contact with and (suspected) exposure to COVID-19
CPT/HCPCS: 36415; 71045; 71275; 80048; 80061; 80076; 81001; 82550; 83690; 83735; 83880; 84443; 84484; 85025; 85379; 85610; 85730; 87428; 93005; 96360; 96361; 99285; J7120; Q9967